=== PATIENT | female | born 1995 | race Caucasian/White ===

== ENCOUNTER 2022-05-26 15:12 | Outpatient (CLI) | payer OTHER, SELFPAY ==
--- OUTSIDE RECORDS SUMMARY | 2022-05-26 15:15 | XMS_ITS | Encounter Summary ---
:1995 Author Organization [employer] Address [address] [place] [address] Care Team Providers Name Role Phone Oksana Haque MD Primary Care Provider Encounter Details Date Type Department Care Team Description 06/30/2021 Office Visit [facility], Abdominal cramping (Primary Dx); Obstetrics and MD Pelvic pressure in female; Gynecology Physician s [address] [facility] Abnormal uterine bleeding (AUB); [address] [facility]. [place], [place] IUD (intrauterine device) in place [place], [place] [phone] (Wo rk) Social History Tobacco Use Types Packs/Day Years Used Date Smoking Tobacco: Every Day Cigarettes 0.3 Smokeless Tobacco: Never Comments: 5 per day Alcohol Use Standard Drinks/Week Comments Yes 0 (1 standard drink = 0.6 oz pure alcoho l) social Sex Assigned at Date Recorded Not on file documented as of this encounter Last Filed Vital Signs Vital Sign Reading Time Taken Comments Blood Pressure 120/87 06/30/2021 2:05 PM RESEARCH CHIEF ENGINEER Pulse 94 06/30/2021 2:05 PM RESEARCH CHIEF ENGINEER Temperature - - Respiratory Rate - - Oxygen Saturation - - Inhaled Oxygen Concentration - - Weight 77 kg (169 lb 12.8 oz) 06/30/2021 2:00 PM RESEARCH CHIEF ENGINEER Height - - Body Mass Index 25.63 04/16/2021 2:09 PM CDT documented in this encounter Patient Instructions Patient InstructionsTabitha Ponce MD - 06/30/2021 2:00 PM CST 1) For the moderate to severe pain, take the ketorolac/toradol every 6 hours. Do not take with ibuprofen. You can take with tylenol 1000mg every 6 hours. Use heat pad. 2) Schedule an IUD removal and insertion in clinic - Will plan to place Kyleena/Nereida. 3) If any concerns before then, let us know. ARCH CHIEF ENGINEER documented in this encounter Progress Notes Tabitha Ponce MD - 06/30/2021 2:00 PM CST CC: IUD check S: Ms. Jennifer King is a 26 y.o. s/p Mirena IUD insertion on 05/14. Since then she had some initial spotting followed by heavier menses for 2 weeks in May. Has had some lower abdominal cramping primarily on the right lower pelvis. The cramping has reduced in frequency and now occurs a couple times a week. Over when the sharp pain is happen she may have to miss work given the severity of the pain. Ibuprofen Tylenol not helping to significant degree. Reports that her cramps are also more painful with her menses. Pain is mostly in the right inguinal ligament/lower pelvis region. Did have LMP 8 days ago. Also reports of pelvic pressure feeling like her bladder is very full but does not have to urinate. Minimal amount of urination this sensation. Having some pain with sex. Has been having ongoing pelvic pain since age 19 years. Has been getting worse over the past few years. Was told previously she may have endometriosis but has had any her surgery at this time. Had 5cm hemorrhagic cyst on prior US. US today with resolution of cyst. O: Vitals: 06/30/21 1405 BP: 120/87 Pulse: 94 General- NAD Abdomen: no abdominal tenderness, soft, gravid, nontender in all quadrants, she reports pain is located in lower right inguinal mid region when pain does occur, no evidence of inguinal hernia, no pain with palpation or straight-leg raise, valsalva Pelvic- Speculum inserted and vagina pink and well rugated, cervix visualized and no obvious lesions. Mirena IUD strings visualized sweeping to the posterior fornix. Bimanual performed with no uterine tenderness. Uterus mobile and normal size,. No palpable adnexal masses or tenderness. Some overall discomfort with both speculum and bimanual exam A/P: Jennifer is a 26yo here for Mirena IUD surveillance and re-evaluation of 5cm hemorrhagic cyst on UStoday with resolution of cyst. Has had ongoing pelvic pain that has been worsening over the past years. We reviewed options for pelvic pain, including OCPs continuous and pre-menstrual NSAIDS. Discussed that the abnormal bleeding should improve over time with progesterone IUD, likely pain will improveas well and has been improving some. Could consider kyleena or nereida for smaller IUD to reduce pain with IUD, she may consider switching to a smaller IUD. Reviewed pain med options. Also discussed if pain is persistent and no improvement with medication, could consider diagnostic laparoscopy for evaluation in the future. - tylenol, ibuprofen PRN For pain, given prescription for toradol to use instead of ibuprofen for more severe pain - RTC PRN if desires to try kyleena/nereida to see if improvement in pain 35min was spent in review of chart, lab results, history and examination as well as coordination andplan of care. Tabitha Ponce MD 06/30/2021 1:19 PM ARCH CHIEF ENGINEER documented in this encounter Plan of Treatment Not on filedocumented as of this encounter Visit Diagnoses Diagnosis Abdominal cramping - Primary Abdominal pain, unspecified site Pelvic pressure in female Other specified symptom associated with female genital organs Abnormal uterine bleeding (AUB) IUD (intrauterine device) in place Presence of intrauterine contraceptive d evice documented in this encounter Care Teams Pressurised Container Filler Relationship Specialty Start Date End Date Oksana Haque MD PCP - General Family Practice 02/07/21 [address] [place] [address] documented as of this encounter
--- OUTSIDE RECORDS SUMMARY | 2022-05-26 15:15 | XMS_ITS | Encounter Summary ---
:1995 Author Organization [facility] Address [address] [place] [address] Care Team Providers Name Role Phone No Primary/Referring, Phy Primary Care Provider Unavailable Encounter Details Date Type Department Care Team Description 01/31/2018 Notes/Orders [facility] Mari Milner A Encounter for IUD [address] insertion [place], [place] [address] Social History Tobacco Use Types Packs/Day Years Used Date Smoking Tobacco: Every Day Smokeless Tobacco: Never Comments: 3-4 cigs per day Alcohol Use Standard Drinks/Week Comments Yes 0 (1 standard drink = 0.6 oz pure alcoho l) rare use - once a month Sex Assigned at Date Recorded Not on file documented as of this encounter Plan of Treatment Not on filedocumented as of this encounter Procedures Procedure Name Priority Date/Time Associated Diagnosis Comme nts TEST Waiting 01/31/2018 3:57 PM Encounter for IUD Re sults for this (URINE) CDT insertion procedure are i n the results section. documented in this encounter Results Test (Urine) (01/31/2018 3:57 PM CDT) Patholo gist Method Time Signature HCG, Urine Negative [facility] Negative = <20 mIU/ml LABORATO MIKKI If is suspected, suggest repeat in 48-72 hours or confirm results with a quantitative hCG test. Specimen Anatomical Collection Method Collection Time Receive d Time (Source) Location / / Volume Laterality Urine specimen 01/31/2018 3:57 PM 018 3:59 (specimen) CDT PM CDT Narrative [facility] - 01/31/2018 4:07 PM C DT Performed at [facility], [address], [place] [address] Kandi Giordano MD LAB_1 Performing Organization Address City/State/ZIP Code Phon e Number [facility] [phone] documented in this encounter Visit Diagnoses Diagnosis Encounter for IUD insertion Encounter for insertion of intrauterine contraceptive device documented in this encounter Care Teams Shrink Pit Supervisor Relationship Specialty Start Date End Date No Primary/Referring, Phy PCP - General 10/23/17 documented as of this encounter
--- OUTSIDE RECORDS SUMMARY | 2022-05-26 15:15 | XMS_ITS | Encounter Summary ---
:1995 Author Organization [facility] Address [address] [place] [address] Care Team Providers Name Role Phone Oksana Haque MD Primary Care Provider Reason for Visit Reason Comments MEDICATION CHECK prozac and adderall rx check . Pt states she is still having anxiety and having problems sleeping Encounter Details Date Type Department Care Team Description 02/24/2021 Phone Visit [facility] Oksana Haque MD Depression with Practice [address] anxiety (Primary Dx) [address] [place], [place] [phone] (Wo rk) Social History Tobacco Use Types Packs/Day Years Used Date Smoking Tobacco: Every Day Cigarettes 0.3 Smokeless Tobacco: Never Alcohol Use Standard Drinks/Week Comments Yes 0 (1 standard drink = 0.6 oz pure alcoho l) social Sex Assigned at Date Recorded Not on file documented as of this encounter Progress Notes Oksana Haque MD - 02/24/2021 3:40 PM CDT Historical: Chief Complaint Patient presents with ??? MEDICATION CHECK prozac and adderall rx check. Pt states she is still having anxiety and having problems sleeping Medication Check: Which medication(s) are you here to have reviewed/refilled? Prozac and Adderall Do you have difficulty taking medications as prescribed? No Do you have medication side effect concerns? No Prozac might not be helping, still feeling depressed, sad, anxious, no suicidal thoughts, hydroxyzine not helping for sleep. I have personally reviewed the patient's allergies, medications and past medical history in detail and updated the patient record as necessary. Observed: LMP 02/19/2021 Physical Exam: General Appearance: alert, well appearing and in no apparent distress Heart: regular rate and rhythm and no murmurs, gallops or rubs Lungs: clear to ausculation and no wheezes, rales or rhonchi Assessment/Plan: Depression with anxiety - traZODone (DESYREL) 50 MG tablet; Take 1-2 Tablets by mouth daily at bedtime for 60 days. - FLUoxetine (PROZAC) 10 MG capsule; Take 3 Capsules by mouth daily for 60 days. In 1 week increase to 20 mg daily Increase the dose of Prozac to 30 mg daily Trazodone as directed Phone number was provided to schedule for behavior health FMLA 1-2 days a month dated back from November 14, 2020 was done for 3 months Follow-up in 3 weeks for med check Should get medical attention right away if there is any worsening of symptoms or new symptoms Please see orders and patient instructions Oksana Haque MD documented in this encounter Plan of Treatment Not on filedocumented as of this encounter Visit Diagnoses Diagnosis Depression with anxiety (HRC) - Primary Dysthymic disorder documented in this encounter Care Teams Precision Assembler Bench Relationship Specialty Start Date End Date Oksana Haque MD PCP - General Family Practice 02/07/21 [address] [place] [address] documented as of this encounter
--- OUTSIDE RECORDS SUMMARY | 2022-05-26 15:15 | XMS_ITS | Encounter Summary ---
:1995 Author Organization [facility] [employer] [facility] Address [address] [place] [address] Care Team Providers Name Role Phone No Primary/Referring, Phy Primary Care Provider Unavailable Encounter Details Date Type Department Care Team Description 10/19/2019 nicola Weber [phone] Social History Tobacco Use Types Packs/Day Years Used Date Smoking Tobacco: Every Day Smokeless Tobacco: Never Comments: 3-4 cigs per day Alcohol Use Standard Drinks/Week Comments Yes 0 (1 standard drink = 0.6 oz pure alcoho l) rare use - once a month Sex Assigned at Date Recorded Not on file documented as of this encounter Progress Notes FAMILY MEDICINENICOLA PROVIDER - 10/19/2019 12:00 AM CDT nicola Treatment Plan Diagnosis Recurrent Urinary Tract Infection Visit Date October 19, 2019 Jennifer King Date of : 89 Provider Cheryl Chaves, Nurse Practitioner Note From Provider Saurav Rodriguez, I have sent your prescription to your pharmacy as we discussed. Please follow-up in your clinic regarding your frequent infections and for treatment of any future infections in the next 6 months. Take good care,Cheryl BELCHER Treatment Plan Since you have a bacterial infection, let's try an antibiotic. I sent a prescription to [facility] Kateryna Crevantes. I've also listed a few of the best ways to soothe your discomfort and some additional self-care tips to get you on the road to feeling better. If your symptoms don't improve after 3days, or if you have questions, select Help to Request a Call Back and we???ll talk about your next steps for free.Because you have recurrent UTIs, we recommend your next occurrence be seen in clinic. If your provider doesn???t recommend a long-term plan, we???d be happy to treat your next four UTIs at [facility]! Order(s) Macrobid 100 mg capsule Take 1 capsule oral every twelve hours with meals for 5 days Note: Take on a full stomach. Refills: None Sent To: [facility] Kateryna Cervantes [address] [place] [address] Treatment Plan Self Care Tip Topics What to Do For Your Next UTI Warm Packs Drink Water Avoid Caffeine Importance of Prevention Yeast Infection Next Steps What to Expect If you follow the recommendations I made on the Treatment tab, your symptoms should improve in about3 days. If your symptoms don't improve after 3 days, or if you have questions, select Help to Request a Call Back and we'll help determine your next steps for free.Because you have recurrent urinary tract infections, we recommend your next UTI be treated in clinic. The standard of care is to get a culture to identify if a intermediate card tender prevention approach is best for you and that nothing else is contributing to your symptoms. You can even share your recent [facility] visit with your in-clinic provider byclicking Share My Records in your treatment plan. If your provider indicates a intermediate card tender prevention plan isn???t necessary, we???d be happy to treat your following four bladder infections at [facility]! What to Watch Out For Give us a call if you experience: ??? High fever ??? Shaking chills ??? Worsening pain with urination ??? Severe pain in your back, abdomen or pelvis My Conditions, Orders, Allergies as of October 19, 2019 Standard condition list endometriosis Current orders Macrobid (nitrofurantoin monohyd/m-cryst) Allergies Sulfa (Sulfonamide Antibiotics) [facility] Information [facility] by Meludia We are an online clinic open 04/01. If you have any questions or comments about this visit, please call or email [email or web address] documented in this encounter Plan of Treatment Not on filedocumented as of this encounter Visit Diagnoses Not on filedocumented in this encounter Care Teams Shoe Worker Relationship Specialty Start Date End Date No Primary/Referring, Phy PCP - General 10/23/17 documented as of this encounter
--- OUTSIDE RECORDS SUMMARY | 2022-05-26 15:15 | XMS_ITS | Encounter Summary ---
:1995 Author Organization [facility] Address [address] [address] Care Team Providers Name Role Phone No Primary/Referring, Phy Primary Care Provider Unavailable Reason for Visit Reason Comments Bleeding Encounter Details Date Type Department Care Team Description 12/24/2020 Office Visit [facility] Kassi Kurtz mal uterine bleeding (AUB) (Primary Dx); and Gynecology MD Johanna Pap smear for cervical cancer screening Physicians [address] [place] [address] [place] [phone] Social History Tobacco Use Types Packs/Day Years Used Date Smoking Tobacco: Every Day Smokeless Tobacco: Never Alcohol Use Standard Drinks/Week Comments Yes 0 (1 standard drink = 0.6 oz pure alcoho l) social Sex Assigned at Date Recorded Not on file documented as of this encounter Last Filed Vital Signs Vital Sign Reading Time Taken Comments Blood Pressure 138/82 12/24/2020 1:42 PM CDT Pulse 87 12/24/2020 1:42 PM CDT Temperature - - Respiratory Rate - - Oxygen Saturation - - Inhaled Oxygen Concentration - - Weight 73 kg (161 lb) 12/24/2020 1:42 PM CDT Height 173.4 cm (5' 8.25) 12/24/2020 1:42 PM CDT Body Mass Index 24.3 12/24/2020 1:42 PM CDT documented in this encounter Patient Instructions Patient InstructionsKassi Kurtz MD - 12/24/2020 1:20 PM CDT 1. loading supervisor your prescription and take as directed. 2. You will be informed of the results of your pap smear and further management. Abnormal Uterine Bleeding: Care Instructions Your Care Instructions Abnormal uterine bleeding is irregular bleeding from the uterus that is longer or heavier than usualor does not occur at your regular time. Sometimes it is caused by changes in hormone levels. It can also be caused by growths in the uterus, such as fibroids or polyps. Sometimes a cause cannot be found. You may have heavy bleeding when you are not expecting your period. Your doctor may suggest a test, if you think you are . Follow-up care is a han part of your treatment and safety. Be sure to make and go to all appointments, and call your doctor if you are having problems. It's also a good idea to know your test results and keep a list of the medicines you take. How can you care for yourself at home? ?? Be safe with medicines. Take pain medicines exactly as directed. ? If the doctor gave you a prescription medicine for pain, take it as prescribed. ? If you are not taking a prescription pain medicine, ask your doctor if you can take an lxpc-zpl-afqlbrs medicine. ?? You may be low in iron because of blood loss. Eat a balanced diet that is high in iron and vitamin C. Foods rich in iron include red meat, shellfish, eggs, beans, and leafy green vegetables. Talk toyour doctor about whether you need to take iron pills or a multivitamin. When should you call for help? Call 911 anytime you think you may need emergency care. For example, call if: ? You passed out (lost consciousness). Call your doctor now or seek immediate medical care if: ? You have new or worse belly or pelvic pain. ? You have severe vaginal bleeding. ? You feel dizzy or lightheaded, or you feel like you may faint. Watch closely for changes in your health, and be sure to contact your doctor if: ? You think you may be . ? Your bleeding gets worse. ? You do not get better as expected. Where can you learn more? 1. Go to https://www.[employer]/healthlibrary. 2. Enter I327 in the search box. Current as of: December 29, 2019?Content Version: 12.8 ?? 4230-5835 [employer]. Care instructions adapted under license by your healthcare professional. If you have questions abouta medical condition or this instruction, always ask your healthcare professional. [employer] disclaims any warranty or liability for your use of this information. documented in this encounter Progress Notes Kassi Kurtz MD - 12/24/2020 1:20 PM CDT PORTER HEAD VISIT CC: Abnormal uterine bleeding Jessi King is a pleasant 25-year-old female G0 who presents with concerns regarding irregular menstrual bleeding. Menstrual history is as follows: Menarche age 15. Cycles were regular at the beginning but then became irregular around age 16-17. Bleeding became heavy. The past 3 years she has been experiencing consistent bleeding every other week to every 2 weeks that is heavy. She was seen in the emergency department in February of 2020. She is experiencing pelvic pain and had a pelvic ultrasound done that demonstrated multiple cysts on both ovaries with a suggested diagnosis of PCOS. Patient was seen by specialist at [facility] as in able to continue seeing a provider due to insurance issues. That provider hadrecommended she stop taking control pills to see how her cycles regulated. The past 3 months cuate cope reports that her menstrual bleeding has been heavy and daily. She did have a Mirena IUD in place 1-1/2 years ago but that was removed due to consistent spotting. She is currently on mini pill. Patient reports that she was prescribed the mini pill through a company online. She denies any history of migraines with aura as or blood clotting disorders. PORTER HEAD history: no h/o abnormal pap smears or STIs. [facility] Sexually active. Minipill for contraception. Medical history notable for depression. Patient reports she used to be on Lexapro but is no longer on medication. Surgical history negative. Medications and drug allergies reviewed. Family history unremarkable. O. Vitals: 07/13/21 1342 BP: 138/82 Pulse: 87 Gen: NAD Pelvic: Examination of external genitalia within normal limits. On speculum exam, cervix and vaginalmucosa within normal limits. Pap smear collected. Speculum removed. Bimanual examination unremarkable. A/P. ICD-10-CM 1. Abnormal uterine bleeding (AUB) N93.9 2. Pap smear for cervical cancer screening Z12.4 Scr Pap Smer; Obtain Prep&Convy-Lab PAP Test Discussed potential etiologies and management of abnormal uterine bleeding. I would recommend patient switch from a progesterone only OCP to a combined OCP. This may be better in regulating her cycles.Prescription for OCP sent to preferred pharmacy. To be informed of results of Pap smear and further m anagement. Questions and concerns addressed. Follow up in 3 months for re-evaluation. Kassi Kurtz MD 12/24/2020, 8:11 PM documented in this encounter Plan of Treatment Not on filedocumented as of this encounter Procedures Procedure Name Priority Date/Time Associated Diagnosis Comme nts PAP TEST Routine 12/24/2020 2:44 PM Pap smear for Results for this CDT cervical cancer procedure ar e in the screening results section . documented in this encounter Results PAP Test (12/24/2020 2:44 PM CDT) Component Value Ref Test Analysis Performed Pathologis t Range Method Time At Signature Case Report Pap ? Case: [id number] ? 01/01/2021 [facility] Authorizing Provider: ??Kassi Kurtz MD ??Collected: ? 12/24/2020 1444 ? 7:25 AM HOSPITA L Ordering Location: ? [facility] Obstetrics and Received: ?12/24/2020 1450 ? CDT ? Gynecology Physicians ? First Screen: ? Chucky Casillas, CT ? (ASCP) ? Specimen: ?Pap Test, Rou bipin, Cervix/Endocervix ? Pap Specimen Satisfactory for 01/01/2021 [facility] Adequacy evaluation, 7:25 AM HOSPITAL endocervical/rivera CDT sformation zone component present. Pap Negative for 01/01/2021 [facility] Electr onically Interpretation intraepithelial 7:25 AM HOSPITAL signed by lesion or CDT Dorota Casillas tthew malignancy A, CT ( CP) on (NIL). 01/01/2021 at 7:25 AM Pap Disclaimer The Pap test is a 01/01/2021 [facility] screening test 7:25 AM HOSPITAL designed to aid CDT in the detection of cervical cancer and its precursor lesions. It is not a diagnostic procedure and should not be used as the sole means of detecting cervical cancer. Both false-positive and false-negative results may occur. Gross The specimen is 01/01/2021 [facility] Description received in 7:25 AM HOSPITAL SurePath fixative CDT and properly labeled. 1 Pap-stained SurePath slide is prepared. Embedded Images 01/01/2021 [facility] 7:25 AM HOSPITAL CDT Specimen Anatomical Collection Method Collection Time Receive d Time (Source) Location / / Volume Laterality Other Specimen ENTIRE ENDOCERVIX 12/24/2020 2:44 PM 2:50 Type / Unknown CDT PM CDT Comment: LMP: No LMP recorded. Narrative This result has an attachment that is no t available. Kassi Kurtz MD LAB PATHOLOGY Performing Organization Address City/State/ZIP Code Phon e Number [address] [address] documented in this encounter Visit Diagnoses Diagnosis Abnormal uterine bleeding (AUB) - Primar y Pap smear for cervical cancer screening Screening for malignant neoplasm of the cervix documented in this encounter Care Teams Airveyor Operator Relationship Specialty Start Date End Date No Primary/Referring, Phy PCP - General 10/23/17 documented as of this encounter
--- OUTSIDE RECORDS SUMMARY | 2022-05-26 15:15 | XMS_ITS | Encounter Summary ---
:1995 Author Organization [employer] Address [address] [place] [address] Care Team Providers Name Role Phone Oksana Haque MD Primary Care Provider Encounter Details Date Type Department Care Team Description 04/16/2021 Office Visit [place] Tabitha Ponce, Abnormal u terine bleeding (Primary Dx); Obstetrics and MD Routine screening for STI (sexually rivera smitted infection) Gynecology Physician s [address] [facility] [address] [facility]. [place], [place] [phone] (Wo rk) Social History Tobacco Use Types Packs/Day Years Used Date Smoking Tobacco: Every Day Cigarettes 0.3 Smokeless Tobacco: Never Comments: 4-5 per day Alcohol Use Standard Drinks/Week Comments Yes 0 (1 standard drink = 0.6 oz pure alcoho l) social Sex Assigned at Date Recorded Not on file documented as of this encounter Last Filed Vital Signs Vital Sign Reading Time Taken Comments Blood Pressure 123/80 04/16/2021 2:09 PM CDT Pulse 80 04/16/2021 2:09 PM CDT Temperature - - Respiratory Rate - - Oxygen Saturation - - Inhaled Oxygen Concentration - - Weight 74.8 kg (165 lb) 04/16/2021 2:09 PM CDT Height 173.4 cm (5' 8.25) 04/16/2021 2:09 PM CDT Body Mass Index 24.9 04/16/2021 2:09 PM CDT documented in this encounter Patient Instructions Patient InstructionsStTabitha noonan R, MD - 04/16/2021 1:40 PM CDT 1) Go to lab to have the blood tested for hormone testing. 2) Schedule a pelvic ultrasound. 3) Schedule an IUD insertion - place [address] in the upper vagina - the night before the procedure - take 800mg of ibuprofen 1 hour prior to the appointment - take 1mg of ativan when you arrive for the appointment - you will need someone to drive 4) When you are due for the next period, take 600mg ibuprofen 3 times a day starting 3 day before your period and continuing 2 days of the period ES 1 THRU 6 VISITING TEACHER documented in this encounter Progress Notes Tabitha Ponce MD - 04/16/2021 1:40 PM CDT Chief Complaint: Heavy menses, period pain, pain with intercourse HPI: Ms. Jennifer King is a 25 y.o. P0 who presents today for the above noted concern. She was seen by PEDIATRIC ALLERGIST on 12/24/20 for AUB. She was recommended to switch from POP to OCP. Recommended f/u in 3months. On OPCs now - sometimes bleeds for a week, sometimes the week off it. Bleeds around 10d on average each month. Takes at same time every day. Menarche - 15yrs Irregular periods starting age [age]yrs. 6 months off, then every two weeks. About half were normal periods. Some months were once a month, then every two weeks - couple days. Every 2-3hrs tampons. On tool rental technician days, 2-3 tampons/day. First 2-3-d and then 7-8d cycles otherwise. Used mirena IUD in place 1 06/15 and removed due to constant spotting. Was on mini-pill. Has been on OCPs prior. Had US prior and was told that she has PCO. Had seen a specialist at [place] and was recommended to stop OPCs to see how periods regulate. Sharp jab pain on the right side, worse during heavy days only. Needs to lie down. Back pain. Wakes up in the morning and feels better to sit on the toilet. Nausea. Heating pad. When the sharp pain comes, they last briefly. Takes celesse - homeopathic med. Takes ibuprofen and relieves a little. Tries to exercise to help relieve. Feels that she might have a bump on vaginal wall, near opening. Nonpainful. Past BULKER Hx: -P0 - no history of abnl paps - last 2020 NILM - no hx of STDs Medical/Surgical Hx: As above Meds and allergies reviewed Exam: BP 123/80 (BP Location: Right Arm, BP Cuff Size: Large) Pulse 80 Ht 5' 8.25 (1.734 m) Wt 165 lb (74.8 kg) BMI 24.90 kg/m?? Estimated body mass index is 24.9 kg/m?? as calculated from the following: Height as of this encounter: 5' 8.25 (1.734 m). Weight as of this encounter: 165 lb (74.8 kg). Gen: NAD Skin: No obvious hormonal acne or hirsutism Pelvic: External genitalia including labia majora and minora, Bartholin's, [place]'s glands, and robert-anal region are normal. No urethral lesions or tenderness. Bladder is nontender and well-supported. On spec exam vaginal mucosa is moist and well-rugated without lesion. Cervix is appropriate for parityand without lesion. On bimanual exam, uterus is anteverted and nontender. There are no adnexal masses or tenderness appreciated. Prior imaging 12/2019 [facility]: FINDINGS: Uterus:: 3.7 cmx4.5 cmx6.5 cm ??retroflexed. Myometrium: Normal. Endometrium: Normal. Thickness: 8 mm Right ovary: There are 25 or more follicles in the 2-9 mm range. Corpus luteum cyst ??Ovarian volume: 17 ml. Right ovary Doppler: Color and spectral Doppler imaging shows normal vascular flow. Left ovary: There are 25 or more follicles in the 2-9 mm range. ??Ovarian volume: 15 ml. Left ovary Doppler: Color and spectral Doppler imaging shows normal vascular flow. Intraperitoneal Fluid: Trace amount. Impression: Jennifer is a 25 y.o. P0 with AUB-possible ovulatory vs. Now endometrial on OCPs, interfering with quality of life. Reviewed with the patient the differential diagnosis of abnormal uterine bleeding including structural such as fibroids or polyps, and nonstructural including anovulation, adenomyosis, etc. The patient was told prior PCO on imaging -does not specify in the imaging from [facility] seen in [place]. She has not had any imaging in our system or hormone testing. --We reviewed management to include oral medication (NSAIDS, OCPs, progestins). We also discussed possible bleeding from thin endometrial lining if she has had intermenstrual spotting with some heavierbleeding on the oral control pills. She denies missing any pills skipping doses. She is currently on a lower dose OCP which is likely a good fit for her otherwise. She has been interested in using the IUD again as this did work to help with her pain however she had persistent spotting. We discussed add back estrogen while using the IUD to help improvement of the spotting. Reviewed IUD insertion. She would like some sedation medication and pain medication to help with the insertion. Also reviewe d use of NSAIDs prior to her next period to help reduce both pain and bleeding. To further evaluate her irregular menses plan for hormone an ultrasound imaging as below. Plan: ICD-10-CM 1. Abnormal uterine bleeding N93.9 OBGYN Pelvic/Regional Dedicated Truck Driver Ultrasound TSH DHEA Sulfate Prolactin Testosterone free and total, female or children 2. Routine screening for STI (sexually transmitted infection) Z11.3 Chlamydia & GC (14 Years andOlder) 42min was spent in review of chart, lab results, history and examination as well as coordination andplan of care. Tabitha Ponce MD MPH 04/16/2021 5:31 PM ES 1 THRU 6 VISITING TEACHER documented in this encounter Plan of Treatment Not on filedocumented as of this encounter Results Chlamydia & GC (14 Years and Older) (04/16/2021 3:14 PM CDT) [facility] Method Time Signature Chlamydia Not Not 04/17/2021 [facility] Trachomatis Detected Detected 4:38 AM CDT CENTRAL LAB STD N. gonorrhoeae Not Not 04/17/2021 [facility] STD Detected Detected 4:38 AM CDT CENTRAL LAB Specimen Anatomical Collection Method Collection Time Receive d Time (Source) Location / / Volume Laterality Swab STD SPECIMEN FROM Non-blood 04/16/2021 3:14 PM 04/16/20 4:00 VAGINA / Unknown Collection / CDT PM CDT Unknown Narrative [facility] - 04/17/2021 4:38 AM CDT Test performed by Radio Operator Ground Mediated Amplification (TMA). Tabitha Ponce MD LAB_1 Performing Organization Address City/State/ZIP Code Phon e Number [facility] [address] [phone] documented in this encounter Visit Diagnoses Diagnosis Abnormal uterine bleeding - Primary Unspecified disorder of menstruation and other abnormal bleeding from female genital tract Routine screening for STI (sexually rivera smitted infection) Screening examination for venereal disea se documented in this encounter Care Teams County Coroner Relationship Specialty Start Date End Date Oksana Haque MD PCP - General Family Practice 02/07/21 [address] [place] [address] documented as of this encounter
--- OUTSIDE RECORDS SUMMARY | 2022-05-26 15:15 | XMS_ITS | Encounter Summary ---
:1995 Author Organization [employer] Address [address], [place] [address] Care Team Providers Name Role Phone No Primary/Referring, Phy Primary Care Provider Unavailable Reason for Visit Reason Comments Revisit CT scan review Encounter Details Date Type Department Care Team Description 11/26/2017 Office Visit [facility] Sree Franco urinary [facility] Juan Lilly MD tract infection [address] (Primary Dx) [place] [address] [place], [place] [phone] [id number] Social History Tobacco Use Types Packs/Day Years Used Date Smoking Tobacco: Some Days Smokeless Tobacco: Never Alcohol Use Standard Drinks/Week Comments No 0 (1 standard drink = 0.6 oz pure alcoho l) Sex Assigned at Date Recorded Not on file documented as of this encounter Last Filed Vital Signs Vital Sign Reading Time Taken Comments Blood Pressure 110/60 11/26/2017 11:21 AM CDT Pulse 95 11/26/2017 11:21 AM CDT Temperature - - Respiratory Rate - - Oxygen Saturation - - Inhaled Oxygen Concentration - - Weight 64 kg (141 lb) 11/26/2017 11:21 AM CDT Height 172.7 cm (5' 8) 11/26/2017 11:21 AM CDT Body Mass Index 21.44 11/26/2017 11:21 AM CDT documented in this encounter Patient Instructions Patient InstructionsWandy Sethi, LIVIER - 11/26/2017 11:00 AM CDT Return in 6 months for recheck. Juan Franco MD 11/26/2017, 11:34 AM Your follow up appointment will be scheduled with one of the urology care team members. This may be one of our physician assistants or nurse practitioners. They are always in direct communication with your physician who remains responsible for your urologic care at [facility]. For Xray, CT test, and Ultrasound results, unless specifically noted, the results of these tests will be discussed at your next visit with your provider. Results will not be reviewed over the phone. If test results require immediate action we will contact you. For medication refills you may need to be seen once a year. For your specific follow up please discuss with your provider. Thank you for continuing to trust us with your care. We are your partner. Our Urology team is always striving to improve your experience with us. You may randomly be selectedto receive a survey via email, text or phone. The survey is 9 questions long and takes less than oneminutes to complete. We would greatly appreciate your feedback. Thank you! Get Cost of Care Estimates - [phone] The health insurance marketplace has changed dramatically in the last few years. Our cost of care service will provide estimates over the phone for treatments or procedures billed through [facility]. To receive a cost estimate, simply call [phone] during regular business hours. If you have insurance coverage, you will need to verify your policy of coverage with your health planby calling the number located on the back of your insurance card and talking to member services. documented in this encounter Progress Notes Juan Franco MD - 11/26/2017 11:00 AM CDT Urology Clinic Note Date of Visit: 11/26/2017 Subjective: is a 22 y.o. year old female who has a past medical history which is overall unremarkable. Patient states that she has had to go to urgent care six times and last 4-5 months for urinary tract infections. She is unaware of exacerbating factors but she does associate this with menstruation. Previously the patient is been given postcoital antibiotics. She has a history of nephrolithiasis. She does have a history of irregular menses. She returns after CT scan which shows no evidence of abnormality. Review of systems: No changes in ears nose throat, cognition or nervous system, skin, or endocrine systems. No Fevers chills nausea vomiting Past medical, surgical, social and allergy history reviewed and unchanged from previous. Examination: No apparent distress Breathing unlabored Abdomen soft and nontender Assessment and Plan: History of recurrent urinary tract infection, no evidence of abnormal anatomy or urothelial lesion which would be very unlikely given her young age. On demand antibiotics ordered. Follow up in six months for recheck, earlier if questions or concerns arise. Juan Franco MD documented in this encounter Plan of Treatment Not on filedocumented as of this encounter Visit Diagnoses Diagnosis Recurrent urinary tract infection - Prim gregoria Urinary tract infection, site not specif ied documented in this encounter Care Teams Paradichlorobenzene Machine Operator Relationship Specialty Start Date End Date No Primary/Referring, Phy PCP - General 10/23/17 documented as of this encounter
--- OUTSIDE RECORDS SUMMARY | 2022-05-26 15:15 | XMS_ITS | Encounter Summary ---
:1995 Author Organization [facility] Address [address] [place] [address] Care Team Providers Name Role Phone No Primary/Referring, Phy Primary Care Provider Unavailable Encounter Details Date Type Department Care Team Description 01/31/2018 Lab Visit [facility] ry Fatigue, unspecified type [address] [place], [place] [address] Social History Tobacco Use Types [...] Name Priority Date/Time Associated Diagnosis Comme nts VITAMIN D Routine 01/31/2018 4:23 PM Fatigue, unspecified R esults for this 25-HYDROXY, TOTAL CDT type procedure are in the results section. HEMOGLOBIN, BLOOD Routine 01/31/2018 4:23 PM Fatigue, unspecif ied Results for this CDT type procedure are i n the results section. FERRITIN Routine 01/31/2018 4:23 PM Fatigue, unspecified R esults for this CDT type procedure are i n the results section. documented in this encounter Results Vitamin D 25-Hydroxy, Total (01/31/2018 4:23 PM CDT) P athologist Signature Vitamin 36 30 - 80 [facility] D,25-OH, Tot ng/mL LAB[facility]ATORIES Comment: Deficiency: ??< 20 ng/mL Insufficiency: ??20-29 ng/mL Optimum Level: ??30-80 ng/mL Possible Toxicity: > 80 ng/mL Specimen Anatomical Collection Method Collection Time Receive d Time (Source) Location / / Volume Laterality 01/31/2018 4:23 PM 8 4:25 CDT PM CDT Narrative [facility] - 01/31/2018 7:03 PM C DT Performed at [address] ??[id number] Kandi Giordano MD LAB_1 Performing Organization Address City/[facility] Code Phon e Number [facility] [phone] Ferritin (01/31/2018 4:23 PM CDT) athologist Signature Ferritin 36 9 - 204 [facility] ng/ml Specimen Anatomical Collection Method Collection Time Receive d Time (Source) Location / / Volume Laterality 01/31/2018 4:23 PM 8 4:25 CDT PM CDT Narrative [facility] - 01/31/2018 6:56 PM C DT Performed at [facility], [address] [place] [id number] Kandi Giordano MD LAB_1 Performing Organization Address [facility] Code Phon e Number [facility] [phone] Hemoglobin, Blood (01/31/2018 4:23 PM CDT) athologist Signature Hemoglobin 13.5 12.0 - 16.0 [facility] g/dl Specimen Anatomical Collection Method Collection Time Receive d Time (Source) Location / / Volume Laterality 01/31/2018 4:23 PM 8 4:25 CDT PM CDT Narrative [facility] - 01/31/2018 6:36 PM C DT Performed at [address] ??[id number] Kandi Giordano MD LAB_1 Performing Organization Address [facility]/ZIP Code Phon e Number [facility] [phone] documented in this encounter Visit Diagnoses Diagnosis Fatigue, unspecified type documented in this encounter Care Teams Western Philosophy Professor Relationship Specialty Start Date End Date No Primary/Referring, Phy PCP - General 10/23/17 documented as of this encounter
--- OUTSIDE RECORDS SUMMARY | 2022-05-26 15:15 | XMS_ITS | Encounter Summary ---
:1995 Author Organization [employer] Address [address] [place] [address] Care Team Providers Name Role Phone Oksana Haque MD Primary Care Provider Reason for Visit Reason Comments Forms Encounter Details Date Type Department Care Team Description 02/25/2021 Telephone [facility] Oksana Downey MD Forms [address] [place], [place] [address] [place] [address] [phone] (Wo rk) Social History Tobacco Use Types Packs/Day Years Used Date Smoking Tobacco: Every Day Cigarettes 0.3 Smokeless Tobacco: Never Alcohol Use Standard Drinks/Week Comments Yes 0 (1 standard drink = 0.6 oz pure alcoho l) social Sex Assigned at Date Recorded Not on file documented as of this encounter Nursing Notes Rosalinda Page - 02/28/2021 10:47 AM CDT Left message to call back to inform her that forms have been faxed to [place]. 2nd attempt CA closing encounter. Rosalinda Page - 02/27/2021 12:48 PM CDT Left a message to call back. Completed form has been faxed to [place] per her request. 1st attempt CA will attempt to call again. Rosalinda Page 02/27/2021, 12:49 PM Pati Barker LPN - 02/27/2021 10:20 AM CDT Rosalinda- will you please contact pt to find out what she needs re: forms etc. Pati Serna LPN 02/27/2021, 10:21 AM Libia Hamilton - 02/25/2021 6:28 PM CDT Miscellaneous Questions [Appt Center: If this call is after 3 p.m., communicate to patient: If we are not able to get back to you by the end of the day and your symptoms worsen please contact the Careline at [phone] OR at .] Is this a question/concern or an FYI? Question/Concern What is your question or concern? Is unable to finish the VIRI so her [place] paperwork can be faxed She is working tomorrow and is unableto pick the paperwork up. Would like to know how to proceed Have you recently been seen for this? Yes Is it okay to leave a detailed message on your voicemail? YEs Libia Hamilton documented in this encounter Plan of Treatment Not on filedocumented as of this encounter Visit Diagnoses Not on filedocumented in this encounter Care Teams Manager Ed Relationship Specialty Start Date End Date Oksana Haque MD PCP - General Family Practice 02/07/21 [address] [place], [place] [phone] documented as of this encounter
--- OUTSIDE RECORDS SUMMARY | 2022-05-26 15:15 | XMS_ITS | Encounter Summary ---
:1995 Author Organization [employer] Address [address] [place] [address] Care Team Providers Name Role Phone No Primary/Referring, Phy Primary Care Provider Unavailable Reason for Visit Reason Comments Medication Questions Encounter Details Date Type Department Care Team Description 12/24/2020 Telephone [facility] Oksana Haque MD Medication Questions Practice [address] [place], [place] [phone] (Wo rk) Social History Tobacco Use Types Packs/Day Years Used Date Smoking Tobacco: Every Day Smokeless Tobacco: Never Alcohol Use Standard Drinks/Week Comments Yes 0 (1 standard drink = 0.6 oz pure alcoho l) social Sex Assigned at Date Recorded Not on file documented as of this encounter Nursing Notes Pati Barker LPN - 12/24/2020 4:[address] Haque, directions should be to take one cap daily for one week , then increase to 2 caps daily. Called correct directions into pharmacy. Pati Barker LPN 12/24/2020, 4:13 PM IhlAlfreda - 12/24/2020 4:00 PM CDT Medications - Med Change / Question What is the name of the medication? FLUoxetine (PROZAC) 10 MG capsule What is your question or concern? Pharmacy needs clarification on directions for Take 1 Capsule by mouth daily for 60 days. In 1 weekincrease to 20 mg daily Is the patient there waiting? No Alfreda Amin [facility] Please route to: Care Team Pool documented in this encounter Plan of Treatment Not on filedocumented as of this encounter Visit Diagnoses Not on filedocumented in this encounter Care Teams Braille Transcriber Relationship Specialty Start Date End Date No Primary/Referring, Phy PCP - General 10/23/17 documented as of this encounter
--- OUTSIDE RECORDS SUMMARY | 2022-05-26 15:15 | XMS_ITS | Encounter Summary ---
:1995 Author Organization Formerly [facility] Address [address] [address] Care Team Providers Name Role Phone Oksana Haque MD Primary Care Provider Reason for Visit Procedure/Equipment (Routine) - Incomplete Specialty Diagnoses / Procedures Referred By Contact Refer red To Contact Diagnoses Left ovarian cyst IUD check up Tabitha Ponce MD Procedures OBGYN Pelvic/Hazardous Materials Driver Ultrasound OBGYN Pelvic/Hazardous Materials Driver Ultrasound [address] [place], [place] [address] Referral ID Status Reason Start Date Expiration Date Visits V isits Requested Authorized [id number] Incomplete 05/14/2021 08/13/2022 1 1 Encounter Details Date Type Department Care Team Description 06/30/2021 Office Visit [place] [facility] medicine specialist Tabitha Ponce, Left ovarian cyst; Ultrasound IUD check up [address] [place], [place] [address] [place], [place] [phone] (Wo rk) Social History Tobacco Use Types [...] encounter Procedures Procedure Name Priority Date/Time Associated Comments Diagnosis OBGYN PELVIC/ELECTRICAL HELPER Routine 06/30/2021 1:25 PM Left ovarian cyst Results for this ULTRASOUND GLOBAL CLIMATE CHANGE ANALYST IUD check up procedure are i n the results section. documented in this encounter Results OBGYN Pelvic/Hazardous Materials Driver Ultrasound (06/30/2021 1:25 PM GLOBAL CLIMATE CHANGE ANALYST) Analysis Performed At Patho logist Time Signature Uterus AP Diameter 3.70 cm EXTERNAL (Height) RESULTS Uterus 6.90 cm EXTERNAL Longitudinal RESULTS Diameter (Length) Uterus Transverse 4.90 cm EXTERNAL Diameter (Width) RESULTS Uterus Volume 65.50 ml EXTERNAL RESULTS Endometrium 6.40 mm EXTERNAL Thickness RESULTS Left Ovary 2.20 cm EXTERNAL Perpendicular RESULTS Diameter (Height) Left Ovary 3.90 cm EXTERNAL Longitudinal RESULTS Diameter (Length) Left Ovary 2.00 cm EXTERNAL Hilum-Cortex RESULTS Diameter (Width) Left Ovary Volume 8.98 ml EXTERNAL RESULTS Right Ovary 2.90 cm EXTERNAL Perpendicular RESULTS Diameter (Height) Right Ovary 5.50 cm EXTERNAL Longitudinal RESULTS Diameter (Length) Right Ovary 3.10 cm EXTERNAL Hilum-Cortex RESULTS Diameter (Width) Right Ovary Volume 25.89 ml EXTERNAL RESULTS Anatomical Region Laterality Modality Pelvis Ultrasound Specimen (Source) Anatomical Location Collection Method / Collectio n Time Received Time / Laterality Volume Narrative 06/30/2021 1:40 PM GLOBAL CLIMATE CHANGE ANALYST ELECTRICAL HELPER Ultrasound Exam performed on: ??06/30/2021 Referring provider: Tabitha Ponce MD Referring clinic: [facility] Clinical indications: Left ovarian cyst IUD check up LMP: ??Spotting on /off since IUD insert ion 05/14/2021 Lathe Puller(s) initials: DP The pelvic organs are imaged using: rivera svaginal. Today's ultrasound was compared to previ ous report and images from: US- 05/14/21 Measurements and comments Uterus: Longitudinal AP Transverse 6.90 3.70 4.90 cm Position: ??retroverted Comments: ??symmetrical Cervix and lower uterine segment are: No rmal Myometrium: homogeneous Saline infusion sonohysterogram: no Endometrium: 6.40 mm, smooth and regular IUD is seen in appropriate position in e ndometrial cavity Right ovary: ?? Longitudinal AP Transverse Volume 5.50 3.10 2.90 cm 25.89 ml Comments: 2.9 x 2.6 x 1.9 cm anechoic ar ea seen, normal appearing dominant follicle Left ovary: Longitudinal AP Transverse ?? 3.90 2.00 2.20 cm 8.98 ml Comments: appears normal Adnexa: ??no masses seen Peritoneal fluid: absent Other procedures done: none Impression: Normal uterus and endometrium. ??IUD see n in appropriate position. Right ovary with dominant follicle/simpl e cyst measuring 2.9 cm. ??Normal appearing left ovary, previous complex c yst has now resolved. Plan: These findings were reviewed with the patient. She will follow up with referring provider. Kandi Giordano MD Tabitha Ponce MD [facility] documented in this encounter Visit Diagnoses Diagnosis Left ovarian cyst Other and unspecified ovarian cyst IUD check up Surveillance of previously prescribed in trauterine contraceptive device documented in this encounter Care Teams Licensed Bondsman Relationship Specialty Start Date End Date Oksana Haque MD PCP - General Family Practice 02/07/21 [address] [place], [place] [id number] documented as of this encounter
--- OUTSIDE RECORDS SUMMARY | 2022-05-26 15:15 | XMS_ITS | Encounter Summary ---
:1995 Author Organization [facility] Address [address], [place] [address] Care Team Providers Name Role Phone No Primary/Referring, Phy Primary Care Provider Unavailable Reason for Visit Reason Comments VOMITING ABDOMINAL PAIN BODY ACHES Encounter Details Date Type Department Care Team Description 05/22/2018 Office Visit [facility] Marlyn Centeno, Non-intractable vomiting with nausea, unspecified vomiting type (Primary Dx); Josue CRUZ Mild dehydration [address] [address] [phone] (Wo rk) Social History Tobacco Use Types [...] Sign Reading Time Taken Comments Blood Pressure 104/72 05/22/2018 2:11 PM TRAINING DESIGNER Pulse 109 05/22/2018 2:11 PM TRAINING DESIGNER Temperature 36.9 ??C (98.4 ??F) 05/22/2018 2:11 PM TRAINING DESIGNER Respiratory Rate - - Oxygen Saturation 99% 05/22/2018 2:11 PM TRAINING DESIGNER Inhaled Oxygen Concentration - - Weight 62.6 kg (138 lb) 05/22/2018 2:11 PM TRAINING DESIGNER Height - - Body Mass Index 21.14 11/29/2017 4:11 PM CDT documented in this encounter Patient Instructions Patient InstructionsMarlyn Lucas MD - 05/22/2018 2:00 PM CST Vomiting STEP 1: Begin by offering 5cc (1 teaspoon) of an electrolyte solution (pedialyte, Gatorade, or otherrehydrating solution) or flat 7-up, melted popsicle, chicken broth... every 15 minutes for 1 hour. If Jennifer does not vomit during this hour then you may advance the liquids as follows: STEP 2: 1 teaspoon every 5 min for 1 hour, then STEP 3: 15 cc (1/2 ounce or 1 Tablespoon) every 15 minutes. Excellent intake!!! STEP 4: 1 ounce (2 Tablespoons) every 15-30 minutes for 1 hour, then STEP 5: 2 ounces every 30 minutes for 1-2 hours, then allow whatever your child wants to take of a clear liquid. DO NOT try food yet. That will come with time. Allow clear liquids for the first day, and resist theurge to let the child have milk (unless it's breast milk). Then, after the child is able to keep clear liquids down for 24 hours, you may slowly advance the diet. Start with soft foods such as noodles,chicken soup, rice, toast, applesauce???still avoiding the dairy products for another day if you can. Diarrhea may be a part of this process and can last up to 10 days with a viral illness. Call your doctor if vomiting persists despite the above treatment, if blood is present in the vomit or diarrhea, or if high fever (102.5 or higher) develops. *If vomiting begins again with a larger volume, rest 1 hour and back up one or two steps. NING DESIGNER documented in this encounter Progress Notes Marlyn Lucas MD - 05/22/2018 2:00 PM CST Historical: Chief Complaint Patient presents with ??? VOMITING ??? ABDOMINAL PAIN ??? BODY ACHES Nausea/Vomiting How long have you had these symptoms? 1.5 days Have you had any changes in symptoms since the onset? the same Are you experiencing any vomiting? YES How frequent has the vomiting occurred? 3 x in the past 6 hours usually after eating or drinking What does the vomit look like? Looks like what she has eaten or had to drink Have you had dry mouth? YES Have you had a fever? No Have you felt lightheaded or like you might faint? YES Are you urinating less than usual? YES Have you been able to eat? No Have you been able to keep fluids down? Yes Have you had abdominal pain/bloating? YES Have you had diarrhea? No Have you been having vertigo, a feeling like the room is spinning or moving? No Have you had a headache? YES Have you tried any treatments? No 23-year-old previously healthy, without any chronic conditions, female woke at 4 AM yesterday with severe stomach pain and vomiting. She had 1 episode of diarrhea yesterday. Abdominal pain feels like razor blades and is worse just before vomiting. It is primarily above the umbilicus. She has been trying to push saltines as recommended by her friends and vomits everything she eats. Her last vomiting episode was 3 hours ago and she has not wanted to eat or drink to avoid vomiting again. ROS) As above, she has a mild sore throat and nasal congestion, she has no history of strep throat. I have personally reviewed the patient's allergies, medications, past medical history, social history and rooming notes in detail and updated the patient record as necessary. Observed: BP 104/72 Pulse (!) 109 Temp 98.4 ??F (36.9 ??C) (Tympanic) Wt 138 lb (62.6 kg) SpO2 99% BMI 21.14 kg/m?? General Appearance: alert, well appearing and in no apparent distress HEENT: sclera clear and conjunctiva normal, oropharynx without erythema, mildly tacky, and no nasal drainage Neck: supple and bilateral mild anterior cervical adenopathy Heart: slightly tachycardic but regular rhythm and no murmurs, gallops or rubs Lungs: clear to ausculation and no wheezes, rales or rhonchi Abdomen: soft, nondistended, no palpable masses, no organomegaly and diffuse mild upper abdominal tenderness Assessment/Plan: 23-year-old female with a viral gastroenteritis. Zofran prescribed for PRN use. Advised to only take in fluids with some calories at this time and delay initiating eating for at least 12 hours. Advised to go to the emergency room if she has any sudden worsening of her pain or dehydration. Please see orders and patient instructions. Options for diagnosis and treatment were reviewed with patient, he/she was engaged in decision making, expressed understanding and agreed with the plan of care. Marlyn Lucas MD 05/22/2018, 2:35 PM Jennifer was seen today for vomiting, abdominal pain and body aches. Diagnoses and all orders for this visit: Non-intractable vomiting with nausea, unspecified vomiting type - ondansetron (ZOFRAN-ODT) 4 MG disintegrating tablet; Take 1 Tablet by mouth every 8 hours as needed for Nausea for up to 14 days. Mild dehydration NING DESIGNER documented in this encounter Nursing Notes Smiley See LPN - 05/22/2018 2:00 PM CST Smiley See LPN 05/22/2018, 1:59 PM NING DESIGNER documented in this encounter Plan of Treatment Not on filedocumented as of this encounter Visit Diagnoses Diagnosis Non-intractable vomiting with nausea, un specified vomiting type - Primary Mild dehydration Dehydration documented in this encounter Care Teams Hat Sprayer Relationship Specialty Start Date End Date No Primary/Referring, iRcoy PCP - General 10/23/17 documented as of this encounter
--- OUTSIDE RECORDS SUMMARY | 2022-05-26 15:15 | XMS_ITS | Encounter Summary ---
:1995 Author Organization [facility] Address [address] [place] [address] Care Team Providers Name Role Phone No Primary/Referring, Phy Primary Care Provider Unavailable Reason for Visit Procedure/Equipment (Routine) - Incomplete Specialty Diagnoses / Procedures Referred By Contact Refer red To Contact Diagnoses Recurrent UTI Painful menstrual periods Juan Franco MD Procedures CT IVP [address] [place] [address] Referral ID Status Reason Start Date Expiration Date Visits V isits Requested Authorized [id number] Incomplete 11/10/2017 02/09/2019 1 1 Encounter Details Date Type Department Care Team Description 11/19/2017 [facility] (Primary Dx[facility] Center MD Juan Lilly MD Recurrent UTI; [address] [place] [address] [place], [place] [phone] [address] Social History Tobacco Use Types Packs/Day Years [...] Name Priority Date/Time Associated Diagnosis Comme nts CREATININE/GFR, WB Routine 11/22/2017 11:31 AM Screening for R esults for this POC CDT nephropathy procedure are i n the results section. CT IVP W/WO IV CONT Routine 11/19/2017 4:36 PM Recurrent UTI Results for this CDT Painful menstrual procedure are in periods the results section. documented in this encounter Results Creatinine/GFR, WB POC (11/22/2017 11:31 AM CDT) P athologist Signature Creat Whole 0.7 0.52 - [facility] Blood 1.04 mg/dl [facility] GFR, Estimated >60 >60 [facility] ml/min/1.7 [facility]ATOR[facility] 3m2 GFR, Est., If >60 >60 [facility] Black ml/min/1.7 [facility]ATORIES 3m2 Specimen Anatomical Collection Method Collection Time Receive d Time (Source) Location / / Volume Laterality 11/22/2017 11:31 11/22/2017 3:23 AM CDT PM CDT Mariposa Aranda MD LAB_1 Performing Organization Address City/State/ZIP Code Phon e Number [facility] [phone] CT IVP (11/19/2017 4:36 PM CDT) Anatomical Region Laterality Modality Abdomen, Pelvis Computed Tomography Specimen (Source) Anatomical Collection Method Collection Time Re ceived Time Location / / Volume Laterality 11/19/2017 4:36 PM CDT Narrative 11/19/2017 6:02 PM CDT [facility] II CT ABDOMEN AND PELVIS WITHOUT AND WITH C ONTRAST (CT IVP) 11/19/2017 4:36 PM INDICATION: Recurrent urinary tract infe ction. Hematuria. TECHNIQUE: Helical thin-section CT scan of the abdomen and pelvis was performed before and after injection of IV contrast. Precontrast, 100 seconds postinjection, and 10-minute delayed images post 250 m L normal saline were performed as per CT IVP protocol. Postprocessing of data. From the helical source data, thin-section reconstruction performed in the axial plane with coronal AP reformats. Dose reduction techniques were used. IV CONTRAST: CT performed after intraven ous administration of 125 mL of Omnipaque 350. COMPARISON: None. FINDINGS: LUNG BASES: Unremarkable. CT IVP: No renal or ureteral stones. No renal mass lesions. Both kidneys excrete contrast into nondilated collecting systems. No filling defects in either collecting system or in the proximal ureters. P ortions of the distal ureters are not co mpletely opacified. Given the patient's age the scans were not repeated. Bladder is unremarkable. ABDOMEN: The liver, spleen, pancreas, ga llbladder and adrenal glands are unremarkable. No retroperitoneal adenopathy. Small bowel loops are unremarkable. PELVIS: Uterus is unremarkable. Tampon i n the vagina. No pelvic adenopathy. No free fluid. MUSCULOSKELETAL: Unremarkable. CONCLUSION: 1. ??No definite etiology for hematuria. Please note that portions of the distal ureters are not opacified on this study. Normal ureteral anatomy. Procedure Note Mariposa Aranda MD - 11/19/2017Formatti ng of this note might be different from the original. SPECIAL[facility] II CT ABDOMEN AND PELVIS WITHOUT AND WITH C ONTRAST (CT IVP) 11/19/2017 4:36 PM INDICATION: Recurrent urinary tract infe ction. Hematuria. TECHNIQUE: Helical thin-section CT scan of the abdomen and pelvis was performed before and after injection of IV contrast. Precontrast, 100 seconds postinjection, and 10-minute delayed images post 250 mL normal saline were performed as per CT IVP prot ocol. Postprocessing of data. From the helical source data, thin-section reconstruction performed in the axial plane with coronal AP reformats. Dose reduction techniques were used. IV CONTRAST: CT performed after intraven ous administration of 125 mL of Omnipaque 350. COMPARISON: None. FINDINGS: LUNG BASES: Unremarkable. CT IVP: No renal or ureteral stones. No renal mass lesions. Both kidneys excrete contrast into nondilated collecting systems. No filling defects in either collecting system or in the proximal ureters. Portions of the distal ureters are not completely opacif ied. Given the patient's age the scans were not repeated. Bladder is unremarkable. ABDOMEN: The liver, spleen, pancreas, ga llbladder and adrenal glands are unremarkable. No retroperitoneal adenopathy. Small bowel loops are unremarkable. PELVIS: Uterus is unremarkable. Tampon i n the vagina. No pelvic adenopathy. No free fluid. MUSCULOSKELETAL: Unremarkable. CONCLUSION: 1. No definite etiology for hematuria. P lease note that portions of the distal ureters are not opacified on this study. Normal ureteral anatomy. Juan Franco MD RAD CT documented in this encounter Visit Diagnoses Diagnosis Screening for nephropathy - Primary Recurrent UTI Urinary tract infection, site not specif ied Painful menstrual periods Dysmenorrhea documented in this encounter Administered Medications Inactive Administered Medications - up to 3 most recent administrations Medication Order MAR Action Action Date Dose Rate Site iohexol (OMNIPAQUE) 350 MG/ML Given 11/19/2017 4:06 PM CDT 125 m L injection 125 mL 125 mL, Intravenous, ONCE, On Wed11/19/17 at 1615, For 1 dose documented in this encounter Care Teams County Director Relationship Specialty Start Date End Date No Primary/Referring, Phy PCP - General 10/23/17 documented as of this encounter
--- OUTSIDE RECORDS SUMMARY | 2022-05-26 15:15 | XMS_ITS | Encounter Summary ---
:1995 Author Organization [facility] [employer] Address [address] [place] [address] Care Team Providers Name Role Phone Oksana Haque MD Primary Care Provider Reason for Visit Reason Comments Forms Encounter Details Date Type Department Care Team Description 02/19/2021 Telephone [facility] Oksana Haque MD Forms [address] [place], [place] [address] [place] [address] [phone] (Wo rk) Social History Tobacco Use Types Packs/Day Years Used Date Smoking Tobacco: Every Day Smokeless Tobacco: Never Alcohol Use Standard Drinks/Week Comments Yes 0 (1 standard drink = 0.6 oz pure alcoho l) social Sex Assigned at Date Recorded Not on file documented as of this encounter Nursing Notes Oksana Haque MD - 02/25/2021 6:48 PM CDT Done Rosalinda Page - 02/21/2021 2:00 PM CDT Spoke with patient and let her know the form has been placed on provider's basket to complete. Pt has a phone visit with provider on 02/24/21. Will fax form to her employer, advised will need an VIRI before we can fax it. Patient agreed. Rosalinda Page 02/21/2021, 2:01 PM Rosalinda Page - 02/21/2021 1:54 PM CDT Forms placed on provider's basket to complete Rosalinda Page 02/21/2021, 1:55 PM Antoinette Blanton - 02/19/2021 3:27 PM CDT Forms & Letters - All Types [Appt Center: Remind patient that forms may take up to 7-10 business days to complete.] IN PROCESS: Type of form: fmla Patient stated employer was asking about it has not received anything yet Patient dropped off form(s) to clinic on a couple weeks ago. Is it okay to leave a detailed message on your voicemail? Yes Is there anything else I can help you with today? Antoinette Blanton documented in this encounter Plan of Treatment Not on filedocumented as of this encounter Visit Diagnoses Not on filedocumented in this encounter Care Teams Hr Director Relationship Specialty Start Date End Date Oksana Haque MD PCP - General Family Practice 02/07/21 [address] [place] [address] documented as of this encounter
--- OUTSIDE RECORDS SUMMARY | 2022-05-26 15:15 | XMS_ITS | Encounter Summary ---
:1995 Author Organization [facility] Address [address] [place] [address] Care Team Providers Name Role Phone No Primary/Referring, Phy Primary Care Provider Unavailable Encounter Details Date Type Department Care Team Description 01/14/2021 nicola Weber [phone] Social History Tobacco Use Types Packs/Day Years Used Date Smoking Tobacco: Every Day Smokeless Tobacco: Never Alcohol Use Standard Drinks/Week Comments Yes 0 (1 standard drink = 0.6 oz pure alcoho l) social Sex Assigned at Date Recorded Not on file documented as of this encounter Progress Notes FAMILY MEDICINENICOLA PROVIDER - 01/14/2021 12:02 PM CDT nicola Treatment Plan Diagnosis Urinary Tract Infection Visit Date January 14, 2021 Jennifer King Date of : 89 Provider Wanda Hoffman, Nurse Practitioner Note From Provider Saurav Rodriguez! So sorry to hear you're having symptoms of a bladder infection. I've sent a prescription for an antibiotic to your pharmacy. The medication that I prescribed for you should be taken with a full meal twice a day.lso, remember to drink lots of fluids. We are here for you for any questions or concerns along the way, just Request a Call Back. Feel better soon! SIMI Muñoz Treatment Plan Since you have a bacterial infection, let's try an antibiotic. I sent a prescriptionto [facility]. I've also listed a few of the best ways to soothe your discomfortand some additional self-care tips to get you on the road to feeling better.If your symptoms don't improve after 3 days, or if you havequestions, please select Help to Request a Call Back andwe'll talk about your next steps for free. Order(s) Macrobid 100 mg capsule Take 1 capsule oral every twelve hours with meals for 5 days Note: Take on a full stomach. Refills: None Sent To: [facility] [address] [place] [id number] Treatment Plan Self Care Tip Topics Avoid Caffeine Warm Packs Drink Water What to Expect If you follow the recommendations I made on the Treatment tab, your symptomsshould improve in about 3 days. If your symptoms don'timprove after 3 days, or if you have questions, please select Help toRequest a Call Back and we'll helpdetermine your next step for free. What to Watch Out For Give us a call if you experience: ??? High fever ??? Shaking chills ??? Worsening pain with urination ??? Severe pain in your back, abdomen or pelvis My Conditions, Orders, Allergies as of January 14, 2021 Standard condition list Polycystic Ovarian Syndrome (PCOS) endometriosis Current orders Macrobid (nitrofurantoin monohyd/m-cryst) Prozac (fluoxetine) hydroxyzine HCl (hydroxyzine HCl) Allergies Sulfa (Sulfonamide Antibiotics) ABS Information ABS by [employer] We are an online clinic open 04/01. If you have any questions or comments about this visit, please call or email [email or web address] documented in this encounter Plan of Treatment Not on filedocumented as of this encounter Visit Diagnoses Not on filedocumented in this encounter Care Teams Water Plumber Relationship Specialty Start Date End Date No Primary/Referring, Phy PCP - General 10/23/17 documented as of this encounter
--- OUTSIDE RECORDS SUMMARY | 2022-05-26 15:15 | XMS_ITS | Clinical Summary ---
:1995 Author Organization [facility] Address [address] [place] [address] Care Team Providers Name Role Phone Oksana Haque MD Primary Care Provider Source Comments You are receiving this document as you are listed as the primary care provider,follow-up provider, or the patient has been referred to you for consultation.This is in compliance with the Medicare and Medicaid EHR Incentive Program,which states Providers who transition their patient to another setting of careor provider of care or refers their patient to another provider of care shouldprovide summarycare record for each transition of care or referral. Virtual Fairground Allergies Active Allergy Reactions Severity Noted Date Comments Sulfa Antibiotics Itching 11/10/2017 Sulfa Antibiotics Hives High 12/24/2020 Medications Medication Sig Dispensed Refills Start Date End Date Status levonorgestrel 1 Each by 0 01/31/2018 01/30/2023 Act liliana (MIRENA) 20 MCG/24HR Intrauterine route IUDIndications: continuous. Encounter for IUD insertion hydrOXYzine HCl Take 1-2 Tablets 30 Tablet 3 12/24/2020 Active (ATARAX) 25 MG by mouth three tablet times a day as needed for Anxiety. traZODone (DESYREL) Take 1-2 Tablets 60 Tablet 1 02/24/2021 Active 50 MG by mouth daily at tabletIndications: bedtime for 60 Depression with days. anxiety (HRC) FLUoxetine (PROZAC) Take 3 Capsules by 90 Capsule 3 02/24/2021 Active 10 MG mouth daily for 60 capsuleIndications: days. In 1 week Depression with increase to 20 mg anxiety (HRC) daily levonorgestrel 1 Each by 0 05/14/2021 05/13/2027 Act liliana (MIRENA) 20 MCG/24HR Intrauterine route IUDIndications: continuous. Encounter for insertion of intrauterine contraceptive device LORazepam (ATIVAN) 1 TAKE 1 TABLET BY 0 05/01/2021 Active MG tablet MOUTH ONCE FOR 1 DOSE. ketorolac (TORADOL) Take 1 Tablet by 20 Tablet 2 06/30/2021 Active 10 MG tablet mouth every 6 hours as needed for Pain. Active Problems Problem Noted Date IUD (intrauterine device) in place 05/14/2021 Overview: Mirena IUD inserted 05/14/2021 --Lot # [id number] Encounters Date Type Specialty Care Team Description 04/21/2022 josep car from Last 3 Months Immunizations Name Administration Dates Next Due 9vHPV (Gardasil 9) 10/24/2019, 11/29/2017, 11/29/2017 DTaP 1995 HepA Ped/Adol (1-18 yrs) 11/02/2012 HepB Adult (Engerix-B, 20+ yrs, 3 dose 02/20/2019, 9 series) HepB, Unspecified Formulation 1997 Hib, Unspecified Formulation 1997 Influenza IIV4 (Quadrivalent) 0.5mL 04/10/2021, 04/10/2019 ([id number]) MMR 12/29/2018 Pfizer (Comirnaty) COVID-19, 12+ Yrs 04/10/2021, 08/01/2020, 07/11/2020 Purple Top Polio, Unspecified Formulation 1997 Tdap 11/02/2012, 11/02/2012 Varicella 02/20/2019, 12/29/2018 Family History Relation Name Status Comments Father Alive Mother Alive Brother 1 full Alive Brother 2 half Alive Brother 3 half Alive Brother 4 half Alive Brother 5 half Alive Brother 6 Alive Brother 7 Alive Brother 8 Alive Brother 9 Alive Maternal Grandfather Alive Maternal Grandmother Alive Paternal Grandfather Alive Paternal Grandmother Alive Sister 1 full Alive Sister 2 half Alive Sister 3 half Alive Sister 4 half Alive Sister 5 Alive Sister 6 Alive Sister 7 Alive Sister 8 Alive Social History Tobacco Use Types Packs/Day Years Used Date Smoking Tobacco: Every Day Cigarettes 0.3 Smokeless Tobacco: Never Comments: 5 per day Alcohol Use Standard Drinks/Week Comments Yes 0 (1 standard drink = 0.6 oz pure alcoho l) social Sex Assigned at Date Recorded Not on file Last Filed Vital Signs Vital Sign Reading Time Taken Comments Blood Pressure 120/87 06/30/2021 2:05 PM MOBILE APPLICATION ARCHITECT Pulse 94 06/30/2021 2:05 PM MOBILE APPLICATION ARCHITECT Temperature 36.9 ??C (98.4 ??F) 05/22/2018 2:11 PM MOBILE APPLICATION ARCHITECT Respiratory Rate 16 10/23/2017 1:50 PM CDT Oxygen Saturation 99% 05/22/2018 2:11 PM MOBILE APPLICATION ARCHITECT Inhaled Oxygen Concentration - - Weight 77 kg (169 lb 12.8 oz) 06/30/2021 2:00 PM MOBILE APPLICATION ARCHITECT Height 173.4 cm (5' 8.25) 04/16/2021 2:09 PM CDT Body Mass Index 25.63 04/16/2021 2:09 PM CDT Plan of Treatment Health Maintenance Due Date Last Done Comments Hep C Screening (Preventive 1995 Services) Pneumococcal (1 - PCV) 2003 HepA (2 of 2 - 2-dose series) 05/05/2013 11/02/2012 HIV Screening (Preventive 2013 Services) Adult Preventive Visit 2015 HPV Vaccine (3 - 3-dose 02/24/2020 10/24/2019, series) 11/29/2017, 11/29/2017 COVID-19 Vaccine (4 - Booster 06/05/2021 04/10/2021, for Pfizer series) 08/01/2020, 07/11/2020 Influenza (#1) 2022 04/10/2021, 04/10/2019 Chlamydia 04/16/2022 04/16/2021, 03/15/2017 (Completed) DTaP/Tdap/Td (3 - Tdap) 11/02/2022 11/02/2012, 11/02/2012, 1997 Pap 12/25/2023 12/24/2020 Zoster/Shingles (1 of 2) 2047 Hib Aged Out 1997 No longer eligib le based on patient's age to complete this to pic IPV (Polio) Aged Out 1997 No longer eligib le based on patient's age to complete this to pic HepB Completed 02/20/2019, 11/16/2018, 1997 Varicella Completed 02/20/2019, 12/29/2018 MCV4 Aged Out No longer eligib le based on patient's age to complete this to pic Insurance Payer Benefit Plan / Subscriber ID Effective Phone Address T ype Group Dates MEDICA MED[employer] HEALTH [id number] 2020-[place] [address] [place] [address] [employer] SELF [id number] 2021-Prese [employer] CARE nt Jennifer King Personal/Family Self [phone] [facility] (Home) [place] [address] Care Teams Front End Drupal Developer Relationship Specialty Start Date End Date Oksana Haque MD PCP - General Family Practice 02/07/21 [address] [place] [address]
--- OUTSIDE RECORDS SUMMARY | 2022-05-26 15:15 | XMS_ITS | Encounter Summary ---
:1995 Author Organization [facility] Address [address] [place] [address] Care Team Providers Name Role Phone Oksana Haque MD Primary Care Provider Reason for Visit Reason Comments IUD Encounter Details Date Type Department Care Team Description 04/17/2021 Telephone [facility], Tabitha Doe MD IUD Gynecology Physician s [address] [facility] [address] [facility] [place] [address] [place], [place] [address] [phone] Social History Tobacco Use Types Packs/Day Years Used Date Smoking Tobacco: Every Day Cigarettes 0.3 Smokeless Tobacco: Never Comments: 4-5 per day Alcohol Use Standard Drinks/Week Comments Yes 0 (1 standard drink = 0.6 oz pure alcoho l) social Sex Assigned at Date Recorded Not on file documented as of this encounter Nursing Notes Emily Nelson RN - 04/21/2021 8:03 AM CST Letter sent. MADELINE Diaz PER TENDER Emily Nelson RN - 04/18/2021 7:57 AM CDT Left message to call back. MADELINE Diaz Emily Nelson RN - 04/17/2021 10:07 AM CDT Left message to call back. Emily RN Nida Reno - 04/17/2021 10:03 AM CDT Appointment Information IUD INSERTION - 05/14/2021 Appointment Status: Scheduled Tabitha Ponce MD Department: CORRECTIONAL CASEWORK SPECIALIST Time: 1:00 PM Length: 20 minutes documented in this encounter Plan of Treatment Not on filedocumented as of this encounter Visit Diagnoses Not on filedocumented in this encounter Care Teams Battery Container Tester Aluminum Relationship Specialty Start Date End Date Oksana Haque MD PCP - General Family Practice 02/07/21 [address] [place] [address] documented as of this encounter
--- OUTSIDE RECORDS SUMMARY | 2022-05-26 15:15 | XMS_ITS | Encounter Summary ---
:1995 Author Organization [facility] Address [address] [place] [address] Care Team Providers Name Role Phone Oksana Haque MD Primary Care Provider Encounter Details Date Type Department Care Team Description 04/21/2022 nicola Weber [phone] Social History Tobacco Use Types Packs/Day Years Used Date Smoking Tobacco: Every Day Cigarettes 0.3 Smokeless Tobacco: Never Comments: 5 per day Alcohol Use Standard Drinks/Week Comments Yes 0 (1 standard drink = 0.6 oz pure alcoho l) social Sex Assigned at Date Recorded Not on file documented as of this encounter Progress Notes FAMILY MEDICINENICOLA PROVIDER - 04/21/2022 1:45 PM CST nicola Treatment Plan Diagnosis Urinary Tract Infection Visit Date April 22, 2022 Jennifer King Date of : 89 Provider Cheryl Schofield, Physician Associate Automation Engineer Note From Provider Good morning -'ve sent a prescription for an antibiotic to your pharmacy. Take the medication with a full meal twice a day and remember to drink lots of fluids. I sent the yeast medication as well if you develop symptoms of a yeast infection. We are here for you for any questions or concerns alongthe way, just Request a Callback. Feel better soon! Treatment Plan Since you have a bacterial infection, let's try an antibiotic. I sent a prescriptionto [facility]. I've also listed a few of the best ways to soothe your discomfortand some additional self-care tips to get you on the road to feeling better.If your symptoms don't start to improve after 3 days, or if you havequestions, please select Help to Request a callback andwe'll talk about your next steps for free. Order(s) nitrofurantoin monohyd/m-cryst 100 mg capsule Take 1 capsule by mouth every twelve hours as directed for 5 days Note: Take with food to improve absorption. Refills: None fluconazole 150 mg tablet Take 1 tablet by mouth single dose as directed Note: Repeat in 3 days if symptoms persist Refills: None Sent To: [facility] [address] [place] [address] [phone] Treatment Plan Self Care Tip Topics Drink Water Avoid Caffeine Warm Packs Pain Relief with AZO What to Expect If you follow the recommendations I made on the Treatment tab, your symptomsshould start to improve in about 3 days. If your symptoms don't start to improve after 3 days, or if you have questions, please select Help toRequest a callback and we'll helpdetermine your next step for free. What to Watch Out For Give us a call if you experience: ??? High fever ??? Shaking chills ??? Worsening pain with urination ??? Severe pain in your back, abdomen or pelvis My Conditions, Orders, Allergies as of April 22, 2022 Standard condition list Polycystic Ovarian Syndrome (PCOS) Current orders fluconazole (fluconazole) nitrofurantoin monohyd/m-cryst (nitrofurantoin monohyd/m-cryst) Allergies Sulfa (Sulfonamide Antibiotics) Rackwise Information [employer] by [employer] We are an online clinic open 04/01. If you have any questions or comments about this visit, please call or email [email or web address] RVISOR AIR CONDITIONING INSTALLER documented in this encounter Plan of Treatment Not on filedocumented as of this encounter Visit Diagnoses Not on filedocumented in this encounter Care Teams Intensivist Relationship Specialty Start Date End Date Oksana Haque MD PCP - General Family Practice 02/07/21 [address] [place] [address] documented as of this encounter
--- OUTSIDE RECORDS SUMMARY | 2022-05-26 15:15 | XMS_ITS | Encounter Summary ---
:1995 [facility] Organization [facility] Address [address] [place] [address] Care Team Providers Name Role Phone Oksana Haque MD Primary Care Provider Encounter Details Date Type Department Care Team Description 04/16/2021 Notes/Orders [place] Debra Haji, Nitesh fl reening Obstetrics and SENIOR INSPECTOR for STI (sexually Gynecology Physician s [facility] transmitted [address] [place] [address]. CLINIC infection) [place], [place] [address] [address] [facility] [phone] [place] [address] Social History Tobacco Use Types Packs/Day Years [...] Name Priority Date/Time Associated Diagnosis Comme nts CHLAMYDIA & GC (14 Routine 04/16/2021 3:14 PM Routine screenin g Results for this YEARS AND OLDER) CDT for STI (sexually proced ure are in transmitted the results infection) section. documented in this encounter Results Chlamydia & GC (14 Years and Older) (04/16/2021 3:14 PM CDT) [facility] Method Time Signature Chlamydia Not Not 04/17/2021 [facility] Trachomatis Detected Detected 4:38 AM CDT [facility] STD N. gonorrhoeae Not Not 04/17/2021 [facility] STD Detected Detected 4:38 AM CDT [facility] Specimen Anatomical Collection Method Collection Time Receive d Time (Source) Location / / Volume Laterality Swab STD SPECIMEN FROM Non-blood 04/16/2021 3:14 PM 04/16/20 4:00 VAG[facility] / Unknown Collection / CDT PM CDT Unknown Narrative [facility] - 04/17/2021 4:38 AM CDT Test performed by Manager Wealth Management Mediated Amplification (TMA). Tabitha Ponce MD LAB_1 Performing Organization Address City/State/ZIP Code Phon e Number [facility] [address] [phone] documented in this encounter Visit Diagnoses Diagnosis Routine screening for STI (sexually rivera smitted infection) Screening examination for venereal disea se documented in this encounter Care Teams Spindle Repairer Relationship Specialty Start Date End Date Oksana Haque MD PCP - General Family Practice 02/07/21 [address] [place] [address] documented as of this encounter
--- OUTSIDE RECORDS SUMMARY | 2022-05-26 15:15 | XMS_ITS | Encounter Summary ---
:1995 Author Organization [facility] Address [address], [place] [address] Care Team Providers Name Role Phone Oksana Haque MD Primary Care Provider Reason for Visit Procedure/Equipment (Routine) - Incomplete Specialty Diagnoses / Procedures Referred By Contact Refer red To Contact Diagnoses Abnormal uterine bleeding Encounter for IUD insertion Tabitha Ponce MD Procedures OBGYN Pelvic/Rigger Chief Ultrasound OBGYN Pelvic/Rigger Chief Ultrasound [address] [place], [place] [address] Referral ID Status Reason Start Date Expiration Date Visits V isits Requested Authorized [id number] Incomplete 04/16/2021 07/16/2022 1 1 Encounter Details Date Type Department Care Team Description 05/14/2021 Office Visit [place] lithograph press operator Tabitha Ponce, Abno rmal uterine bleeding; Ultrasound Encounter for IUD insertion [address] [facility]. [address] [place], [place] [address] [place], [place] [phone] (Wo rk) Social History Tobacco Use Types [...] Name Priority Date/Time Associated Comments Diagnosis OBGYN PELVIC/RIGGER HELPER Routine 05/14/2021 1:38 PM Abnormal uterine R esults for this ULTRASOUND PVC MONITOR bleeding procedure are in Encounter for IUD the result s insertion section. documented in this encounter Results OBGYN Pelvic/Rigger Chief Ultrasound (05/14/2021 1:38 PM PVC MONITOR) Analysis Performed At Patho logist Time Signature Uterus AP Diameter 3.60 cm EXTERNAL (Height) RESULTS Uterus 7.50 cm EXTERNAL Longitudinal RESULTS Diameter (Length) Uterus Transverse 4.10 cm EXTERNAL Diameter (Width) RESULTS Uterus Volume 57.96 ml EXTERNAL RESULTS Endometrium 6.10 mm EXTERNAL Thickness RESULTS Left Ovary 4.30 cm EXTERNAL Perpendicular RESULTS Diameter (Height) Left Ovary 5.70 cm EXTERNAL Longitudinal RESULTS Diameter (Length) Left Ovary 4.90 cm EXTERNAL Hilum-Cortex RESULTS Diameter (Width) Left Ovary Volume 62.88 ml EXTERNAL RESULTS Right Ovary 2.70 cm EXTERNAL Perpendicular RESULTS Diameter (Height) Right Ovary 3.40 cm EXTERNAL Longitudinal RESULTS Diameter (Length) Right Ovary 3.10 cm EXTERNAL Hilum-Cortex RESULTS Diameter (Width) Right Ovary Volume 14.90 ml EXTERNAL RESULTS Anatomical Region Laterality Modality Pelvis Ultrasound Specimen (Source) Anatomical Location Collection Method / Collectio n Time Received Time / Laterality Volume Narrative 05/14/2021 3:22 PM PVC MONITOR RIGGER HELPER Ultrasound Exam performed on: ??05/14/2021 Referring provider: Tabitha Ponce MD Referring clinic: [facility] Clinical indications: Abnormal uterine b leeding Encounter for IUD insertion LMP: ??04/30/21 Bunghole Borer(s) initials: KW The pelvic organs are imaged using: both transvaginal and transabdominal transducers to better visualize the pelv ic anatomy. Today's ultrasound was compared to previ ous report and images from: US 01/01/2020, CT 01/01/2020 Measurements and comments Uterus: Longitudinal AP Transverse 7.50 3.60 4.10 cm Position: ??anteverted Comments: ??symmetrical Cervix and lower uterine segment are: No rmal Myometrium: homogeneous Saline infusion sonohysterogram: no Endometrium: 6.10 mm, smooth and regular IUD is seen in appropriate position in e ndometrial cavity Right ovary: ?? Longitudinal AP Transverse Volume 3.40 3.10 2.70 cm 14.90 ml Comments: multiple small cysts around th e periphery Left ovary: Longitudinal AP Transverse ?? 5.70 4.90 4.30 cm 62.88 ml Comments: complex anechoic area measurin g 5.1 x 3.7 x 4.2 cm Adnexa: ??no masses seen Peritoneal fluid: present Other procedures done: IUD placement don e by Dr. Ponce. Ultrasound order placed for patient to [facility] follow up in 6-12 weeks for left ovarian cyst and IUD localizati on. Impression: Normal appearing uterus. Normal appearing endometrium with IUD in appropriate position following placement. The right ovary meets sonographic criter ia for polycystic ovarian morphology. The left ovary contains hemorrhagic appe aring cyst measuring 5.1cm in maximal dimension. ??She had no pain ove r this cyst. Plan: These findings were reviewed with the patient. Recommend repeat ultrasound in 6-12 week s to ensure resolution of her left ovarian cyst. She will follow up with her referring pr jacinda. Amy Galvez MD Tabitha Ponce MD RAD US documented in this encounter Visit Diagnoses Diagnosis Abnormal uterine bleeding Unspecified disorder of menstruation and other abnormal bleeding from female genital tract Encounter for IUD insertion Encounter for insertion of intrauterine contraceptive device documented in this encounter Care Teams Color Room Attendant Relationship Specialty Start Date End Date Oksana Haque MD PCP - General Family Practice 02/07/21 [address] [place] [address] documented as of this encounter
--- OUTSIDE RECORDS SUMMARY | 2022-05-26 15:15 | XMS_ITS | Encounter Summary ---
:1995 Author Organization [facility] Address [address] [place] [address] Care Team Providers Name Role Phone No Primary/Referring, Phy Primary Care Provider Unavailable Encounter Details Date Type Department Care Team Description 01/19/2020 nicola Weber [phone] Social History Tobacco Use Types Packs/Day Years Used Date Smoking Tobacco: Every Day Smokeless Tobacco: Never Comments: 3-4 cigs per day Alcohol Use Standard Drinks/Week Comments Yes 0 (1 standard drink = 0.6 oz pure alcoho l) rare use - once a month Sex Assigned at Date Recorded Not on file documented as of this encounter Progress Notes FAMILY MEDICINENICOLA PROVIDER - 01/19/2020 12:00 AM CDT nicola Treatment Plan Diagnosis Urinary Tract Infection Visit Date January 19, 2020Octobermihaela King Date of : 89 Provider Radha Lion, Physician Air Control/Anti Air Warfare Officer Note From Provider PASCUAL Rodriguez. Thank you for using nicola today and for speaking with me. So sorry to hear you're having these symptoms. I've prescribed an antibiotic for your UTI. The antibiotic I prescribed for you should be taken with a full meal twice a day (i.e. with breakfast and dinner). Please drink lots of fluids and take all the prescribed days of your antibiotic course, even if you feel better sooner. Pleasereview the plan created for you today! Take care and feel better soon! Radha HINDS Treatment Plan Since you have a bacterial infection, let's try an antibiotic. I sent a prescriptionto [facility] Kateryna Cervantes. I've also listed a few of the best ways to soothe your discomfortand some additional self-care tips to get you on the road to feeling better.If your symptoms don't improve after 3 days, or if you havequestions, please select Help to Request a Call Back andwe'll talk about your next steps for free. Order(s) cephalexin 500 mg capsule Take 1 capsule oral every twelve hours as directed for 7 days Note: Refills: None Sent To: [facility] Kateryna Cervantes [address] [place] [address] Treatment Plan Self Care Tip Topics Warm Packs Drink Water Avoid Caffeine What to Expect If you follow the [...] My Conditions, Orders, Allergies as of January 19, 2020 Standard condition list Polycystic Ovarian Syndrome (PCOS) endometriosis Current orders cephalexin (cephalexin) Lexapro (escitalopram oxalate) Allergies Sulfa (Sulfonamide Antibiotics) sourceasy Information sourceasy by [email or web address] We are an online clinic open 04/01. If you have any questions or comments about this visit, please call or email [email or web address]. documented in this encounter Plan of Treatment Not on filedocumented as of this encounter Visit Diagnoses Not on filedocumented in this encounter Care Teams Pharmacovigilance Scientist Relationship Specialty Start Date End Date No Primary/Referring, Phy PCP - General 10/23/17 documented as of this encounter
--- OUTSIDE RECORDS SUMMARY | 2022-05-26 15:15 | XMS_ITS | Encounter Summary ---
:1995 Author Organization [facility] Address [address], [place] [address] Care Team Providers Name Role Phone Oksana Haque MD Primary Care Provider Encounter Details Date Type Department Care Team Description 01/14/2018 Correspondence None No Primary/Referring, Phy NEW PATIENT HISTORY Social History Tobacco Use Types Packs/Day Years [...] on filedocumented in this encounter Care Teams Frame Stripper Relationship Specialty Start Date End Date Oksana Haque MD PCP - General Family Practice 02/07/21 [address] [place], [place] [address] documented as of this encounter
--- OUTSIDE RECORDS SUMMARY | 2022-05-26 15:15 | XMS_ITS | Encounter Summary ---
:1995 Author Organization [facility] Address [address] [place] [address] Care Team Providers Name Role Phone No Primary/Referring, Phy Primary Care Provider Unavailable Reason for Visit Reason Comments Same Day/Next Day Appt. Encounter Details Date Type Department Care Team Description 01/31/2018 Telephone [place] [facility] Kandi Giordano Same Day/Next Day and Gynecology MD [facility] [address] [place], [place] [phone] (Wo rk) Social History Tobacco Use Types Packs/Day Years Used Date Smoking Tobacco: Every Day Smokeless Tobacco: Never Comments: 3-4 cigs per day Alcohol Use Standard Drinks/Week Comments Yes 0 (1 standard drink = 0.6 oz pure alcoho l) rare use - once a month Sex Assigned at Date Recorded Not on file documented as of this encounter Nursing Notes Radha Luo RN - 01/31/2018 3:06 PM CDT Pt is running late but should be here around 3:[address] Giordano's nurse to have her come inat that time. Pt informed. Radha Luo RN Nagi Arce - 01/31/2018 2:59 PM CDT Appointments - Same Day / Future Patient would like appointment with: Any Provider Encounter Clinician: Kandi Giordano MD Patient requesting appointment for: To speak to a nurse about abnormal bleeding, Pt missed an appt she had at 3pm today but she will like to speak with Dr Giordano's nurse, she feels the BC is not working Wants/Needs to be seen within: 2 hour(s) Is it okay to leave detailed message on your voicemail? Yes Nagi Arce documented in this encounter Plan of Treatment Not on filedocumented as of this encounter Visit Diagnoses Not on filedocumented in this encounter Care Teams Membership Sales Manager Relationship Specialty Start Date End Date No Primary/Referring, Lindy PCP - General 10/23/17 documented as of this encounter
--- OUTSIDE RECORDS SUMMARY | 2022-05-26 15:15 | XMS_ITS | Encounter Summary ---
:1995 [facility] Address [address] [place] [address] Care Team Providers Name Role Phone No Primary/Referring, Phy Primary Care Provider Unavailable Reason for Visit Consult/Transfer Care (Routine) - Closed Specialty Diagnoses / Procedures Referred By Contact Refer red To Contact Diagnoses Encounter for immunization Kandi Giordano MD [address] [place] [address] Referral ID Status Reason Start Date Expiration Date Visits Requ ested Visits Authorized [id number] Closed 11/29/2017 02/28/2019 1 1 Encounter Details Date Type Department Care Team Description 01/31/2018 Office Visit [place] Kandi Giordano Encounter for IUD insertion (Primary Dx); Obstetrics and MD [place] Encounter for surveillance of vaginal ri ng hormonal contraceptive device; Gynecology Physician s [address] Fatigue, unspecified type [address] [place], [place] [address] [place], [place] [phone] Social History Tobacco Use Types Packs/Day Years [...] Sign Reading Time Taken Comments Blood Pressure 114/70 01/31/2018 3:35 PM CDT Pulse 74 01/31/2018 3:35 PM CDT Temperature - - Respiratory Rate - - Oxygen Saturation - - Inhaled Oxygen Concentration - - Weight - - Height - - Body Mass Index - - documented in this encounter Patient Instructions Patient InstructionsKandi Giordano MD - 01/31/2018 3:47 PM CDT Return in 6 weeks for IUD check. Go to lab for blood tests. IUD Insertion Do not put anything into your vagina for the next 48 hours ?? pads, not tampons for any spotting or bleeding ?? do not have intercourse ?? do not douche Your monthly period may become irregular for the first 3-6 months. You may also experience frequent spotting or light bleeding; a few women have heavy bleeding during this time. After your body adjuststo the IUD, the number of bleeding days is likely to decrease and you may even find that your periods stop altogether. You may take ibuprofen or acetaminophen (Tylenol) for any minor cramping that may occur. Call the clinic with any abdominal pain, fever or other concerns. Check for the presence of the IUD string by reaching to the back of the vagina with your fingers. Check for the string before intercourse for the next 6 weeks and then after each menses. Warning Signs: Within the first 3 weeks of Insertion ?? Fever (greater than 101) ?? Chills ?? Strong or sharp pain in your stomach or belly At any time ?? Feeling (breast tenderness, nausea, vomiting) ?? Positive home test If you develop any of the above warning signs, see your healthcare provider. You can also call the clinic at [phone]. documented in this encounter Progress Notes Kandi Giordano MD - 01/31/2018 3:47 PM CDT TORSTEN King is a 22 yo P0 who presents with concerns regarding spotting using Nuva Ring. She was trying continuous use - 4 weeks at a time, but has had breakthrough bleeding for past month. She took ring out on 01/24 and has had continued heavy bleeding, just now starting to lighten up. Has felt tired, with increased headaches since having all this bleeding. She has been feeling VERY tired lately, difficulty getting out of bed for work. She desires to try LARC - specifically progesterone IUD. She has been counseled regarding the risks, benefits and alternatives to IUD use and her questions have been answered. She wishes to proceed with the insertion of the Mirena. has been ruled out by the following: No unprotected intercourse since LMP and Negative pregancy test today. No results found for: CHLAMYDIA, GREGORY PROCEDURE BP 114/70 Pulse 74 LMP (LMP Unknown) With the patient in the lithotomy position, a bimanual examination was done. The uterus is midpositon. A speculum was placed in the vagina and the cervix was prepped with Betadine. A tenaculum was placedon the anterior lip of the cervix. The endometrial cavity was sounded to 7.5 cm. The Mirena IUD was inserted according to the manufacturers directions without difficulty. The IUD strings were trimmed to a length of 2 cm. She tolerated the procedure well. Jennifer King was taught how to check for the IUD string and was asked to return in six weeks for anIUD check. The IUD should be removed in 5 years and may be removed at any time at her request. Patient requests labs for evaluation of fatigue - will get hgb, vitamin D, and ferritin level. Also requested time off from work after IUD placement, given note for today and tomorrow, discussed would not expect her to need further time off for this. In addition to procedure, 15 minutes were spent in counseling regarding contraception options. Kandi Giordano MD documented in this encounter Plan of Treatment Not on filedocumented as of this encounter Results Vitamin D 25-Hydroxy, Total (01/31/2018 4:23 PM CDT) athologist Signature Vitamin 36 30 - 80 [facility] D,25-OH, Tot ng/mL [facility]IES Comment: Deficiency: ??< 20 ng/mL Insufficiency: ??20-29 ng/mL Optimum Level: ??30-80 ng/mL Possible Toxicity: > 80 ng/mL Specimen Anatomical Collection Method Collection Time Receive d Time (Source) Location / / Volume Laterality 01/31/2018 4:23 PM 8 4:25 CDT PM CDT Narrative [facility] - 01/31/2018 7:03 PM C DT Performed at [facility], [address] [place] [address] ??[id number] Kandi Giordano MD LAB_1 Performing Organization Address [facility]/ZIP Code Phon e Number [facility] [phone] Ferritin (01/31/2018 4:23 PM CDT) athologist Signature Ferritin 36 9 - 204 [facility] ng/ml Specimen Anatomical Collection Method Collection Time Receive d Time (Source) Location / / Volume Laterality 01/31/2018 4:23 PM 8 4:25 CDT PM CDT Narrative [facility] - 01/31/2018 6:56 PM C DT Performed at [facility], [address] [place] [address] ??[id number] Kandi Giordano MD LAB_1 Performing Organization Address [facility] Phon e Number [facility] [phone] Hemoglobin, Blood (01/31/2018 4:23 PM CDT) athologist [facility] Hemoglobin 13.5 12.0 - 16.0 [facility] g/dl Specimen Anatomical Collection Method Collection Time Receive d Time (Source) Location / / Volume Laterality 01/31/2018 4:23 PM 8 4:25 CDT PM CDT Narrative [facility] - 01/31/2018 6:36 PM C DT Performed at [facility], [address] [place] [address] ??[id number] Kandi Giordano MD LAB_1 Performing Organization Address [facility]/ZIP Code Phon e Number [facility] [phone] Test (Urine) (01/31/2018 3:57 PM CDT) [facility] gist Method Time Signature HCG, Urine Negative [facility] Negative = <20 mIU/ml [facility] If is suspected, suggest repeat in 48-72 hours or confirm results with a quantitative hCG test. Specimen Anatomical Collection Method Collection Time Receive d Time (Source) Location / / Volume Laterality Urine specimen 01/31/2018 3:57 PM 018 3:59 (specimen) CDT PM CDT Narrative [facility] - 01/31/2018 4:07 PM C DT Performed at [facility], [address] [place] [address] Kandi Giordano MD LAB_1 Performing Organization Address City/State/ZIP Code Phon e Number [facility] [phone] documented in this encounter Visit Diagnoses Diagnosis Encounter for IUD insertion - Primary Encounter for insertion of intrauterine contraceptive device Encounter for surveillance of vaginal ri ng hormonal contraceptive device Fatigue, unspecified type Encounter for IUD insertion Encounter for insertion of intrauterine contraceptive device Fatigue, unspecified type documented in this encounter Administered Medications Inactive Administered Medications - up to 3 most recent administrations Medication Order MAR Action Action Date Dose Rate Site levonorgestrel (MIRENA) 20 Given 01/31/2018 5:06 PM CDT 1 Each MCG/24HR intrauterine device 1 Each 1 Each, Intrauterine, ONCE, On 01/31/18 at 1615, For 1 dose, This medication is a Category X medication. Therefore, it should not be given to patients. The patient's status must be verified before administering this medication. Hazardous waste disposal required. documented in this encounter Care Teams Senior Insight Manager Relationship Specialty Start Date End Date No Primary/Referring, Phy PCP - General 10/23/17 documented as of this encounter
--- OUTSIDE RECORDS SUMMARY | 2022-05-26 15:15 | XMS_ITS | Encounter Summary ---
:1995 Author Organization [facility] Address [address] [place] [address] Care Team Providers Name Role Phone Oksana Haque MD Primary Care Provider Reason for Visit Reason Comments IUD INSERTION Encounter Details Date Type Department Care Team Description 05/14/2021 Office Visit [place], Encounter for insertion of intrauterine contraceptive device (Primary Dx); Obstetrics and MD Left ovarian cyst Gynecology Physician s [address] [facility] [address] [facility] [place], [place] [phone] Social History Tobacco Use Types Packs/Day Years Used Date Smoking Tobacco: Every Day Cigarettes 0.3 Smokeless Tobacco: Never Comments: 4-5 per day Alcohol Use Standard Drinks/Week Comments Yes 0 (1 standard drink = 0.6 oz pure alcoho l) social Sex Assigned at Date Recorded Not on file documented as of this encounter Patient Instructions Patient InstructionsTabitha Ponce MD - 05/14/2021 1:00 PM CST 1) Return to clinic in 6 months for IUD check and ovarian cyst check 2) Schedule two visits - MD visit and US check IUD Insertion Do not put anything into [...] You can also call the clinic at [phone]. SUPPORT TECHNICIAN documented in this encounter Progress Notes Tabitha Ponce MD - 05/14/2021 1:00 PM CST CC: IUD Insertion S: Jennifer King is a 26 y.o. P0 presenting for insertion of a Mirena IUD. She has used mirena IUD, POP, OCPs in the past for control and is interested in this alf option. Did have spottingand we had discussed add back estrogen as needed After a thorough discussion of the effectiveness, expected side effects and menstral changes as well as risks specific to an IUD (perforation and need for laparoscopy, infection, expulsion, higher risk of ectopic if does occur) she provided consent to proceed. has been ruled out by no sex for 6 months. O: No Procedure: On bimanual exam, her uterus is anteverted and there are no adnexal masses. A speculum was inserted, her cervix was visualized and prepped with betadine. A single-tooth tenaculum was placed on the anterior lip. Sterile gloves were donned, the uterus was sounded to 7cm, and the IUD was placed into the uterus under US guidance per skydiving instructor's instructions without difficulty. The strings were trimmed to a length of 4cm. All instruments were removed, the procedure was complete, and she tolerated it very well. US confirmed correct location following placement. A/P: 26 y.o. s/p placement of Mirena IUD under US guidance. --Lot # [id number] --She was taught how to feel the strings and asked to come back in 4-6 weeks for an IUD check, sooner if any pain, fevers, abnl discharge or other concerns -- hemorrhagic cyst 5cm on left ovary, no pain on this side. US order placed to follow-up cyst in 6-12 weeks per recommendation from US MD Tabitha Ponce MD 05/14/2021 1:34 PM SUPPORT TECHNICIAN documented in this encounter Plan of Treatment Not on filedocumented as of this encounter Visit Diagnoses Diagnosis Encounter for insertion of intrauterine contraceptive device - Primary Left ovarian cyst Other and unspecified ovarian cyst documented in this encounter Administered Medications Inactive Administered Medications - up to 3 most recent administrations Medication Order MAR Action Action Date Dose Rate Site levonorgestrel (MIRENA) 20 Given 05/14/2021 4:13 PM LIFE SUPPORT TECHNICIAN 1 Each MCG/24HR intrauterine device 1 Each 1 Each, Intrauterine, ONCE, On Wed05/14/21 at 1400, For 1 dose, This medication is a Category X medication. Therefore, it should not be given to patients. The patient's status must be verified before administering this medication. Hazardous waste disposal required. Administration: Single glove documented in this encounter Care Teams Machine Operator Slitter Technician Relationship Specialty Start Date End Date Oksana Haque MD PCP - General Family Practice 02/07/21 [address] [place] [address] documented as of this encounter
--- OUTSIDE RECORDS SUMMARY | 2022-05-26 15:15 | XMS_ITS | Encounter Summary ---
:1995 Author Organization [employer] Address [address] [place] [address] Care Team Providers Name Role Phone No Primary/Referring, Phy Primary Care Provider Unavailable Reason for Referral Consult/Transfer Care (Routine) - Closed Specialty Diagnoses / Procedures Referred By Contact Refer red To Contact Diagnoses Depression with anxiety (HRC) Oksana Haque MD [address] [place], [place] [address] Referral ID Status Reason Start Date Expiration Date Visits Requ ested Visits Authorized [id number] Closed 12/24/2020 03/25/2022 1 1 Scheduling Instructions Your provider has recommended an appoint ment with Behavioral Health. You may call [phone] to schedule your appointmen t. This recommended service/s may not be covered by your health plan (health insu lin). To find out your specific benefit coverage, please call the number on your insurance card.?? Please note that in order to maintain access for all patients, [facility] does have a late cancellation policy.?? In order to avoid being restri cted from scheduling future appointments in Behavioral Health you will need to cance l at least 48 hours in advance. We request you that you arrive 30 minutes before yo ur first appointment to complete paperwork. Reason for Visit Reason Comments DEPRESSION ANXIETY Encounter Details Date Type Department Care Team Description 12/24/2020 Office Visit [facility] Oksana Haque MD Depression with anxiety (Primary Dx); Practice [address] Impacted cerumen of left ear [address] [place], [place] [phone] Social History Tobacco Use Types Packs/Day Years Used Date Smoking Tobacco: Every Day Smokeless Tobacco: Never Alcohol Use Standard Drinks/Week Comments Yes 0 (1 standard drink = 0.6 oz pure alcoho l) social Sex Assigned at Date Recorded Not on file documented as of this encounter Last Filed Vital Signs Vital Sign Reading Time Taken Comments Blood Pressure 116/73 12/24/2020 3:00 PM CDT Pulse 87 12/24/2020 3:00 PM CDT Temperature - - Respiratory Rate - - Oxygen Saturation - - Inhaled Oxygen Concentration - - Weight 73.9 kg (163 lb) 12/24/2020 3:00 PM CDT Height - - Body Mass Index 24.6 12/24/2020 1:42 PM CDT documented in this encounter Patient Instructions Patient InstructionsKOksana hutchinson MD - 12/24/2020 3:00 PM CDT Should quit smoking Should follow-up with behavior health therapist Continue regular walks Minimize caffeine intake Prozac as directed Hydroxyzine as directed/as needed for anxiety , this can cause drowsiness Follow-up in 4 weeks for medication check Should get medical attention right away if there is any worsening of symptoms or new symptoms documented in this encounter Progress Notes Oksana Haque MD - 12/24/2020 3:00 PM CDT Jennifer King is a 25 y.o. old female came in to discuss depression and anxiety, was taking Lexapro 10 mg, took it for 10 months, felt like did not work and stopped taking it, did see therapist few times, due to insurance had to stop it, symptoms are getting worse, lot of anxiety about driving on highways, anxiety about work, waking up frequently, appetite varies, no more thoughts of hurting herself,remote history of suicidal attempt. Been doing every day walk, smoking 5 cigarettes a day, occasional alcohol. Does have family history of mental health, mom may have bipolar. Historical: Chief Complaint Patient presents with ??? DEPRESSION ??? ANXIETY Depression Do you take any prescription medication for this condition? Not taking- lexapro didn't seem to work Are you seeing a counselor or therapist? No How many times a week are you exercising regularly? 3 - 5 times per week, 30 minutes or more Have you diagnosed/treated for depression in the past? YES Do you have a family history of depression? YES- Mom has bipolar and anxiety No flowsheet data found. Social History Substance and Sexual Activity Alcohol Use Yes Comment: social Social History Tobacco Use Smoking Status Current Every Day Smoker Smokeless Tobacco Never Used Social History Substance and Sexual Activity Drug Use Not on file I have personally reviewed the patient's allergies, medications and past medical history in detail and updated the patient record as necessary. Observed: There were no vitals taken for this visit. Physical Exam: General Appearance: alert, well appearing and in no apparent distress HEENT: lids normal, sclera clear and conjunctiva normal and oropharynx clear, ear canals clear and TMs normal Neck: no lymphadenopathy and no thyromegaly or nodules Heart: regular rate and rhythm and no murmurs, gallops or rubs Lungs: clear to ausculation and no wheezes, rales or rhonchi Abdomen: soft, nondistended, nontender, no palpable masses and no organomegaly Assessment/Plan: Depression with anxiety (HRC) - Behavioral Health Impacted cerumen of left ear - [address] REMOVE IMPACTED EAR WAX UNI LEFT Other orders - FLUoxetine (PROZAC) 10 MG capsule; Take 1 Capsule by mouth daily for 60 days. In 1 week increase to 20 mg daily - hydrOXYzine HCl (ATARAX) 25 MG tablet; Take 1-2 Tablets by mouth three times a day as needed for Anxiety. Should quit smoking Should follow-up with behavior health therapist Continue regular walks Minimize caffeine intake Prozac as directed Hydroxyzine as directed/as needed for anxiety , this can cause drowsiness Follow-up in 4 weeks for medication check Should get medical attention right away if there is any worsening of symptoms or new symptoms Please see orders and patient instructions Oksana Haque MD Pati Barker LPN - 12/24/2020 3:00 PM CDT S: Patient has cerumen impaction. States has been using ear wax softening agent Yes. O: Cerumen observed in left ear canal(s). A: Patient history has been obtained. Dr. Haque reviewed history, assessed ears and placed order forear lavage. P: Left ear lavaged with tap water. all of the cerumen was removed. Otoscope evaluation post ear lavage to be completed by RN or clinician. Pati Barker LPN 12/24/2020, 4:01 PM documented in this encounter Plan of Treatment Scheduled Referrals Name Type Priority Associated Diagnoses Order [facility] Behavioral Health Referral Routine Depression with anxiety Ordered: 12/24/2020 documented as of this encounter Visit Diagnoses Diagnosis Depression with anxiety (HRC) - Primary Dysthymic disorder Impacted cerumen of left ear Impacted cerumen documented in this encounter Care Teams Clinical Information Systems Director Relationship Specialty Start Date End Date No Primary/Referring, Phy PCP - General 10/23/17 documented as of this encounter
--- OUTSIDE RECORDS SUMMARY | 2022-05-26 15:15 | XMS_ITS | Encounter Summary ---
:1995 Author Organization [facility] Address [address] [place] [address] Care Team Providers Name Role Phone No Primary/Referring, Phy Primary Care Provider Unavailable Reason for Referral Consult/Transfer Care (Routine) - Closed Specialty Diagnoses / Procedures Referred By Contact Refer red To Contact Diagnoses Encounter for immunization Kandi Giordano MD [address] [place] [address] Referral ID Status Reason Start Date Expiration Date Visits Requ ested Visits Authorized [id number] Closed 11/29/2017 02/28/2019 1 1 Scheduling Instructions Your provider has recommended an appoint ment with a [facility] nurse. A 7th grade social studies teacher will contact you within the next 3 in ess days to assist you in setting up this appointment. Reason for Visit Reason Comments DYSMENORRHEA IMMUNIZATIONS Consult/Transfer Care (Routine) - Closed Specialty Diagnoses / Procedures Referred By Contact Refer red To Contact Diagnoses Recurrent UTI Painful menstrual periods Juan Franco MD [address] [place] [address] Referral ID Status Reason Start Date Expiration Date Visits Requ ested Visits Authorized [id number] Closed 11/10/2017 02/09/2019 1 1 Encounter Details Date Type Department Care Team Description 11/29/2017 Office Visit [facility] Keys Dysmenorrh ea (Primary Dx); Obstetrics and [place], Encounter for immunization Gynecology Physician s [address] [place], [place] [address] [place], [place] [phone] Social History Tobacco Use Types Packs/Day [...] Sign Reading Time Taken Comments Blood Pressure 100/66 11/29/2017 4:11 PM CDT Pulse 76 11/29/2017 4:11 PM CDT Temperature - - Respiratory Rate - - Oxygen Saturation - - Inhaled Oxygen Concentration - - Weight 63.5 kg (140 lb) 11/29/2017 4:11 PM CDT Height 172.1 cm (5' 7.75) 11/29/2017 4:11 PM CDT Body Mass Index 21.44 11/29/2017 4:11 PM CDT documented in this encounter Patient Instructions Patient InstructionsKandi Giordano MD - 11/29/2017 4:00 PM CDT Images from the original note were not included. Start using Nuva Ring - replace every 4 weeks. You will have some irregular bleeding for the first 3 months or so, if it continues after that, let us know and we could try doing every 3 weeks. Learning About Control: The Ring What is the ring? The ring is used to prevent . It's a soft plastic ring that you put into your vagina. It's also called the vaginal ring. The ring releases a regular dose of the hormones estrogen and progestin. These hormones prevent in three ways. They thicken the mucus in the cervix. This makes it hard for sperm to travel into the uterus. They thin the lining of the uterus, which makes it harder for a fertilized egg to attach to the uterus. The hormones also can stop the ovaries from releasing an egg each month (ovulation). The ring protects against for 1 month at a time. You wear one ring for 3 weeks in a row and then go without a ring for 1 week. During this week, you have your period. Your period may be very light. How well does it work? In the first year of use: ?? When the ring is used exactly as directed, fewer than 1 woman out of 100 has an unplanned . ?? When the ring is not used exactly as directed, 9 or more women out of 100 have an unplanned . What are the advantages of the ring? ?? The ring is more effective for preventing than barrier methods of control, such as the condom or diaphragm. ?? It prevents for up to 1 month at a time. ?? It may reduce acne, heavy bleeding and cramping, and symptoms of premenstrual syndrome. ?? The ring is convenient. You insert it only 1 time each month. You do not have to interrupt sex toprotect against . What are the disadvantages of the ring? ?? The ring doesn't protect against sexually transmitted infections (STIs), such as herpes or HIV/AIDS. If you aren't sure if your sex partner might have an STI, use a condom to protect against infection. ?? The ring may cause changes in your period. You may have little bleeding, skipped periods, or spotting. ?? It may cause mood changes, less interest in sex, or weight gain. ?? The ring contains estrogen. It may not be right for you if you have certain health problems or concerns. ?? You must remember to change the ring on schedule. Where can you learn more? 1. Go to Moment.me/Bambisa or M-DISC/Argusrary. 2. Enter H169 in the search box. Current as of: May 04, 2017 Content Version: 11.6 ?? [id number] Videostir, SyMynd. documented in this encounter Progress Notes Kandi Giordano MD - 11/29/2017 4:00 PM CDT [facility] Note CC: painful periods HPI: Jennifer King is a 22 y.o. old who presents for management of painful periods. The patient reports painful periods since at 15-16. Initially weren't bad with menarche age 16. Periods now monthly, last 7 days with first 3-4 days very heavy and painful. Has to change tampon every 2hrs, wears tampon and pad overnight together, passes clots. Has significant pain - feels like a hotknife stabbing her from the inside and vagina. Takes Aleeve with minimal relief. Some dyspareunia -feels like her partner is hitting something inside. Also some sharp pain with bowel movements during defecation. Has tried OCPs twice before - at age 18 and also this year for 6 months at a time. Stopped both times due to nausea in morning. Took at night and had significant nausea in morning. Uses co ndoms regularly with intercourse now. Seen by urology recently for recurrent UTIs, had CT IVP and was normal. Doing voids after sex and cranberry supplement and this is helping. Patient does smoke 3-4 cig/day. Has a history of headaches, sometimes migraine. Rarely has spots in her vision AFTER headache starts (never before, happens maybe once or twice per year). No family or personal history of VTE/stroke. Had STI testing done at in July, negative. LMP: Patient's last menstrual period was 11/15/2017 (exact date). Review of Systems: A 10 point review of systems was negative except as noted in HPI OBHx: MHx: Negative SHx: Past Surgical History: Procedure Laterality Date ??? SURGICAL HX - NEG Referral Management Liaison Hx: Last Pap smear: N/A; History of abnormal Pap smear: no. Menses are as above. Social: Social History Substance Use Topics ??? Smoking status: Current Every Day Smoker ??? Smokeless tobacco: Never Used Comment: 3-4 cigs per day ??? Alcohol use Yes Comment: rare use - once a month Meds: Outpatient Medications Prior to Visit Medication Sig Dispense Refill ??? ciprofloxacin (CIPRO) 500 MG tablet Take 1 Tab by mouth two times a day. 6 Tab 6 No facility-administered medications prior to visit. FamHx: History reviewed. No pertinent family history. Allergies: Allergies Allergen Reactions ??? Sulfa Antibiotics Itching Physical Examination: BP 100/66 Pulse 76 Ht 5' 7.75 (1.721 m) Wt 140 lb (63.5 kg) LMP 11/15/2017 (Exact Date) BMI 21.44 kg/m2 Estimated body mass index is 21.44 kg/(m^2) as calculated from the following: Height as of this encounter: 5' 7.75 (1.721 m). Weight as of this encounter: 140 lb (63.5 kg). GEN - NAD, comfortable; appears stated age No additional exam done, visit done entirely in counseling Assessment/Plan: Jennifer King is a 22 y.o. old with dysmenorrhea, some history consistent withendometriosis. We discussed options for management, including OCPs/patch/ring, Depo Provera, progesterone IUD, highdose progesterone, Nexplanon. Patient would like to try Nuva Ring and take continuously. No contraindications to use (has migraines but not with aura). Instructed on use. Will try using every 4 weeks, if she gets breakthrough bleeding still after 3 months, can try changing every 3 weeks. Counseled on vaccinations and would like to start HPV vaccines. 1st given today. Reviewed pap smears starting at age 21 and annual STI screening (had in Jul 2017). 30 minutes were spent face to face with this patient, with at least 50% spent on counseling and coordination of care. Kandi Giordano MD 11/29/2017 5:11 PM documented in this encounter Plan of Treatment Scheduled Referrals Name Type Priority Associated Diagnoses Order S maciej Nurse Appointment for Referral Routine Encounter for Order ed: 11/29/2017 next HPV Vaccine immunization documented as of this encounter Visit Diagnoses Diagnosis Dysmenorrhea - Primary Encounter for immunization Need for other specified prophylactic va ccination against single bacterial disease documented in this encounter Care Teams Payroll And Benefits Assistant Relationship Specialty Start Date End Date No Primary/Referring, Phy PCP - General 10/23/17 documented as of this encounter
--- OUTSIDE RECORDS SUMMARY | 2022-05-26 15:15 | XMS_ITS | Encounter Summary ---
:1995 Author Organization [facility] Address [address] [place] [address] Care Team Providers Name Role Phone No Primary/Referring, Phy Primary Care Provider Unavailable Reason for Visit Reason Comments LAB RESULTS Encounter Details Date Type Department Care Team Description 02/01/2018 Telephone [place] [facility] and Kandi Caballero MD LAB RESULTS Gynecology Physician s [address] [place], [place] [phone] (Wo rk) Social History Tobacco Use Types Packs/Day Years Used Date Smoking Tobacco: Every Day Smokeless Tobacco: Never Comments: 3-4 cigs per day Alcohol Use Standard Drinks/Week Comments Yes 0 (1 standard drink = 0.6 oz pure alcoho l) rare use - once a month Sex Assigned at Date Recorded Not on file documented as of this encounter Nursing Notes Arlin Floyd, MADELINE - 02/02/2018 4:31 PM CDT She has been notified of results. Arlin Floyd RN 02/02/2018, 4:31 PM Radha Luo RN - 02/01/2018 8:16 AM CDT Component Latest Ref Rng & Units 01/31/2018 Hemoglobin 12.0 - 16.0 g/dl 13.5 Ferritin 9 - 204 ng/ml 36 Vitamin D,25 Hydroxy 30 - 80 ng/mL 36 Pt requested a phone call with results. Called pt. Left message to call back. Radha Luo, RN documented in this encounter Plan of Treatment Not on filedocumented as of this encounter Visit Diagnoses Not on filedocumented in this encounter Care Teams Activated Sludge Attendant Relationship Specialty Start Date End Date No Primary/Referring, Phy PCP - General 10/23/17 documented as of this encounter
--- OUTSIDE RECORDS SUMMARY | 2022-05-26 15:16 | XMS_ITS | Encounter Summary ---
:1995 Author Organization [facility] Address [address] [place] [address] Care Team Providers Name Role Phone No Primary/Referring, Phy Primary Care Provider Unavailable Encounter Details Date Type Department Care Team Description 10/23/2017 Notes/Orders [facility] Yasmeen Lemus Painful urination [address] [facility] [address] [place], [place] [address] [place], [place] [phone] (Wo rk) Social History Tobacco Use Types Packs/Day Years Used Date Smoking Tobacco: Some Days Smokeless Tobacco: Never Sex Assigned at Date Recorded Not on file documented as of this encounter Progress Notes Claribel Castillo RN - 11/11/2017 2:09 PM CDT Results noted. Treated during OV with Cipro. Claribel Castillo RN 11/11/2017, 2:09 PM documented in this encounter Plan of Treatment Not on filedocumented as of this encounter Procedures Procedure Name Priority Date/Time Associated Diagnosis Comme nts URINE CULTURE Routine 10/23/2017 1:20 PM Results for this CDT procedure are i n the results section . UA MICRO IF Routine 10/23/2017 1:18 PM Painful urination Resu lts for this CDT procedure are i n the results section . UA MICRO Routine 10/23/2017 1:18 PM Results f or this CDT procedure are i n the results section . documented in this encounter Results Urine Culture (10/23/2017 1:20 PM CDT) Component Value Ref Test Analysis Performed At [facility] Range Method Time Signature Specimen Urine [facility] Description [facility] Special Unspecified [facility] Requests [facility]ORATORIES Culture 10 to 50,000 col/ml [facility] Multiple Bacterial Morphologies [facility]IES Report Status 10/25/2017 [facility] Final [facility] Specimen Anatomical Collection Method Collection Time Receive d Time (Source) Location / / Volume Laterality Urine: 10/23/2017 1:20 PM 8 8:48 CDT AM CDT Rosemarie Ugalde APRN, REGULATORY AFFAIRS PORTFOLIO LEADER LAB_1 Performing Organization Address City/State/ZIP Code Phon e Number [facility] [phone] UA MICRO (10/23/2017 1:18 PM CDT) athologist Signature RBC'S 0-3 0 - 3 /hpf [facility] WBC'S 10-20 0 - 5 /hpf [facility] Epith, Occ /hpf [facility] Squamous [facility] Bact Mod [facility] Casts 0 /lpf [facility] Specimen Anatomical Collection Method Collection Time Receive d Time (Source) Location / / Volume Laterality 10/23/2017 1:18 PM 8 1:19 CDT PM CDT Narrative [facility] - 10/23/2017 1:31 PM C DT Performed at [facility], [address] [place] [address] Jabari Stubbs MD LAB_1 Performing Organization Address City/[facility]/ZIP Code Phon e Number [facility] [phone] (ABNORMAL) UA Micro If (10/23/2017 1:18 PM CDT) [facility] Method Time Signature Urine Color Yellow [facility] Urine Clarity Clear [facility] Sp Gr 1.025 1.005 - [facility] 1.030 [facility] Leuk Sml (A) NEG [facility] Nitr Positive (A) NEG [facility] pH 6.0 4.5 - 8.0 [facility] Prot Tr (A) NEG mg/dl [facility] Gluc Negative NEG [facility] Ket Negative NEG [facility] Urob 0.2 0.2 - 1.0 [facility] EU/dl [facility] Bili Negative NEG [facility] Blood Sml (A) NEGTR [facility] Specimen Anatomical Collection Method Collection Time Receive d Time (Source) Location / / Volume Laterality 10/23/2017 1:18 PM 8 1:19 CDT PM CDT Narrative [facility] - 10/23/2017 1:30 PM C DT Performed at [facility], [address] [place] [address] Jabari Stubbs MD LAB_1 Performing Organization Address City/State/ZIP Code Phon e Number [facility] [phone] documented in this encounter Visit Diagnoses Diagnosis Painful urination Dysuria documented in this encounter Care Teams Incinerator Plant General Supervisor Relationship Specialty Start Date End Date No Primary/Referring, Phy PCP - General 10/23/17 documented as of this encounter
--- OUTSIDE RECORDS SUMMARY | 2022-05-26 15:16 | XMS_ITS | Encounter Summary ---
:1995 Author Organization [facility] Address [address], [place] [address] Care Team Providers Name Role Phone No Primary/Referring, Phy Primary Care Provider Unavailable Reason for Referral Consult/Transfer Care (Routine) - Closed Specialty Diagnoses / Procedures Referred By Contact Refer red To Contact Diagnoses Recurrent UTI Painful menstrual periods Juan Franco MD [address] [place] [address] Referral ID Status Reason Start Date Expiration Date Visits Requ ested Visits Authorized [id number] Closed 11/10/2017 02/09/2019 1 1 Scheduling Instructions Your provider has recommended an appoint ment with [facility] CONTINUOUS DRIER OPERATOR. You may call [phone] to schedule your appointmen t. If you prefer, a cross tie tram loader will contact you within the next 3 business days to a ssist you in setting up this appointment. We suggest you call your health insurance alan about your coverage and benefits for this appointment. Procedure/Equipment (Routine) - Incomplete Specialty Diagnoses / Procedures Referred By Contact Refer red To Contact Diagnoses Recurrent UTI Painful menstrual periods Juan Franco MD Procedures CT IVP [address] [place] [address] Referral ID Status Reason Start Date Expiration Date Visits V isits Requested Authorized [id number] Incomplete 11/10/2017 02/09/2019 1 1 Reason for Visit Reason Comments Consult, New Patient UTI Encounter Details Date Type Department Care Team Description 11/10/2017 Office Visit [facility] Sree Franco UTI (Primary Dx); [facility] Juan Lilly MD Painful menstrual periods [address] [place] [address] [place] [phone] Social History Tobacco Use Types Packs/Day Years Used Date Smoking Tobacco: Some Days Smokeless Tobacco: Never Alcohol Use Standard Drinks/Week Comments No 0 (1 standard drink = 0.6 oz pure alcoho l) Sex Assigned at Date Recorded Not on file documented as of this encounter Last Filed Vital Signs Vital Sign Reading Time Taken Comments Blood Pressure 115/63 11/10/2017 8:34 AM CDT Pulse 77 11/10/2017 8:34 AM CDT Temperature - - Respiratory Rate - - Oxygen Saturation - - Inhaled Oxygen Concentration - - Weight 64 kg (141 lb) 11/10/2017 8:34 AM CDT Height 172.7 cm (5' 8) 11/10/2017 8:34 AM CDT Body Mass Index 21.44 11/10/2017 8:34 AM CDT documented in this encounter Patient Instructions Patient InstructionsAaronWandy colón Brennan, PROGRAM MANAGER RN - 11/10/2017 8:15 AM CDT Obtain a CT scan Stay hydrated, add a OTC cranberry supplement Return after scan for possible cystoscopy. [employer]ICAN FOOD MAKER HAND consult for painful periods. Juan Franco MD 11/10/2017, 8:55 AM Your follow up appointment will be scheduled with one of the urology care team members. This may be one of our physician assistants or nurse practitioners. They are always in direct communication with your physician who remains responsible for your urologic care at [facility]. For Xray, CT test, and Ultrasound results, [...] you! Get Cost of Care Estimates - [phone] The health insurance marketplace has changed dramatically in the last few years. Our cost of care service will provide estimates over the phone for treatments or procedures billed through [facility]. To receive a cost estimate, simply call [phone] during regular business hours. If you have insurance coverage, you will need to verify your policy of coverage with your health planby calling the number located on the back of your insurance card and talking to member services. documented in this encounter Progress Notes Juan Franco MD - 11/10/2017 8:15 AM CDT Urology New Patient Note Date of Service: 11/10/2017 HPI: Jennifer Kign is a 22 y.o. old female is seen for urologic evaluation and treatment of recurrent urinary tract infections. Pt is a 22 y.o. year old female [...] does have a history of irregular menses. The patient has a current medication list which includes the following prescription(s): etonogestrel-ethinyl estradiol. The patient's past medical, social, allergy and family history were reviewed and available within the electronic medical record. Patient works as a certified nurse ex assistant/program director. Review of systems: 10 point review of systems reviewed and negative except as per history of presentillness. ? Physical Exam: BP 115/63 Pulse 77 Ht 5' 8 (1.727 m) Wt 141 lb (64 kg) LMP 10/21/2017 BMI 21.44 kg/m2 General/Psych: Alert and Oriented to person, place, and time. Pleasant mannerism and in no apparent distress. Answers questions appropriately. Normal affect HEENT: Atraumatic, normocephalic Skin: Warm and dry. No active rashes, lesions, infections noted. Lungs: Easily breathing on room air. Good respiratory excursion. No obvious wheezes, rales, or rhonchi. Clear to ausculation CV: Heart rate RRR, No pitting edema noted on lower extremities. No JVD noted. GI: flat, Soft, not distended, nontender. No obvious abdominal masses, pulsations, nor HSM. No guarding or rebound. Musculoskeletal: No obvious spinal deformities, no CVA tenderness noted with percussion. Neuro: Cranial nerves II-XII grossly intact. No neurologic defects noted. Recent microscopic urinalysis history: RBC'S (/hpf) Date Value 11/10/2017 0-3 10/23/2017 0-3 WBC'S (/hpf) Date Value 11/10/2017 0 10/23/2017 10-20 Assessment: Encounter Diagnoses Name Primary? Recurrent UTI Yes ??? Painful menstrual periods Recurrent urinary tract infections. Recommend CT scan to evaluate for abnormal upper tract anatomy.-Recommend good hydration and eckz-uxe-ylccwjo cranberry supplementation. Follow up afterwards for possible cystoscopy. We will have her evaluated by gynecology for painful menstruation,- Juan Franco MD documented in this encounter Plan of Treatment Scheduled Referrals Name Type Priority Associated Diagnoses Order S chedule Ob-Electronic Coils Supervisor Consult Referral Routine Recurrent UTI Ordered: 11/10/2017 Painful menstrual periods documented as of this encounter Procedures Procedure Name Priority Date/Time Associated Diagnosis Comme nts UA WITH MICRO Waiting 11/10/2017 8:03 AM Recurrent UTI Results for this CDT procedure are i n the results section . documented in this encounter Results CT IVP (11/19/2017 4:36 PM CDT) Anatomical Region Laterality Modality Abdomen, Pelvis Computed Tomography Specimen (Source) Anatomical Collection Method Collection Time Re ceived Time Location / / Volume Laterality 11/19/2017 4:36 PM CDT Narrative 11/19/2017 6:02 PM CDT SPECIALTY CTR II CT ABDOMEN AND PELVIS [...] ureteral anatomy. Juan Franco MD RAD CT (ABNORMAL) UA with Micro (11/10/2017 8:03 AM CDT) [facility] gist Method Time Signature Urine Color Yellow [facility] Urine Clarity Clear [facility] Sp Gr 1.025 1.005 - [facility] 1.030 [facility] Leuk Negative NEG [facility] Nitr Negative NEG [facility] pH 6.0 4.5 - 8.0 [facility] Prot Negative NEG mg/dl [facility] Gluc Negative NEG [facility] Ket Tr (A) NEG [facility] Urob 0.2 0.2 - 1.0 [facility] EU/dl [facility] Bili Negative NEG [facility] Blood Neg/Tr NEGTR [facility] RBC'S 0-3 0 - 3 [facility] /hpf LAB[facility] WBC'S 0 0 - 5 [facility] /hpf [facility] Epith, Occ /hpf [facility] Squamous [facility] Bact 0 [facility] Casts 0 /lpf [facility] Specimen Anatomical Collection Method Collection Time Receive d Time (Source) Location / / Volume Laterality 11/10/2017 8:03 AM 8 8:09 CDT AM CDT Narrative [facility] - 11/10/2017 8:18 AM C DT Performed at [address] [facility], [address] [place] [id number] Juan Franco MD LAB_1 Performing Organization Address City/State/ZIP Code Phon e Number [facility] [phone] documented in this encounter Visit Diagnoses Diagnosis Recurrent UTI - Primary Urinary tract infection, site not specif ied Painful menstrual periods Dysmenorrhea Screening for nephropathy - Primary Recurrent UTI Urinary tract infection, site not specif ied Painful menstrual periods Dysmenorrhea documented in this encounter Care Teams Acetylene Burner Relationship Specialty Start Date End Date No Primary/Referring, Phy PCP - General 10/23/17 documented as of this encounter
--- OUTSIDE RECORDS SUMMARY | 2022-05-26 15:16 | XMS_ITS | Encounter Summary ---
:1995 Author Organization [facility] Address [address], [place] [address] Care Team Providers Name Role Phone No Primary/Referring, Phy Primary Care Provider Unavailable Reason for Visit Reason Comments Dysuria Encounter Details Date Type Department Care Team Description 10/23/2017 Office Visit [facility] Rosemarie Haas Uri nary tract infection with hematuria, site unspecified (Primary Dx); Josue BRODERICK CNP Painful urination [id number] [place], [place] [phone] [id number] Social History Tobacco Use Types Packs/Day Years Used Date Smoking Tobacco: Some Days Smokeless Tobacco: Never Sex Assigned at Date Recorded Not on file documented as of this encounter Last Filed Vital Signs Vital Sign Reading Time Taken Comments Blood Pressure 112/61 10/23/2017 1:50 PM CDT Pulse 105 10/23/2017 1:50 PM CDT Temperature 36.7 ??C (98.1 ??F) 10/23/2017 1:50 PM CDT Respiratory Rate 16 10/23/2017 1:50 PM CDT Oxygen Saturation - - Inhaled Oxygen Concentration - - Weight 64 kg (141 lb) 10/23/2017 1:50 PM CDT Height - - Body Mass Index - - documented in this encounter Patient Instructions Patient InstructionsRosemarie Ugalde APRN, CNP - 10/23/2017 1:00 PM CDT Images from the original note were not included. Today you were seen for a UTI Take all medications as prescribed Take Tylenol or Ibuprofen for pain (unless you have been instructed not to take either one) Drink plenty of liquids and rest Follow up with your primary care provider or return to the urgent care if your symptoms do not improve or get worse. Urinary Tract Infection in Women: Care Instructions Your Care Instructions A urinary tract infection, or UTI, is a general term for an infection anywhere between the kidneys and the urethra (where urine comes out). Most UTIs are bladder infections. They often cause pain or burning when you urinate. UTIs are caused by bacteria and can be cured with antibiotics. Be sure to complete your treatment sothat the infection goes away. Follow-up care is a han part of your treatment and safety. Be sure to make and go to all appointments, and call your doctor if you are having problems. It's also a good idea to know your test results and keep a list of the medicines you take. How can you care for yourself at home? ?? Take your antibiotics as directed. Do not stop taking them just because you feel better. You needto take the full course of antibiotics. ?? Drink extra water and other fluids for the next day or two. This may help wash out the bacteria that are causing the infection. (If you have kidney, heart, or liver disease and have to limit fluids,talk with your doctor before you increase your fluid intake.) ?? Avoid drinks that are carbonated or have caffeine. They can irritate the bladder. ?? Urinate often. Try to empty your bladder each time. ?? To relieve pain, take a hot bath or lay a heating pad set on low over your lower belly or genitalarea. Never go to sleep with a heating pad in place. To prevent UTIs ?? Drink plenty of water each day. This helps you urinate often, which clears bacteria from your system. (If you have kidney, heart, or liver disease and have to limit fluids, talk with your doctor before you increase your fluid intake.) ?? Urinate when you need to. ?? Urinate right after you have sex. ?? Change sanitary pads often. ?? Avoid douches, bubble baths, feminine hygiene sprays, and other feminine hygiene products that have deodorants. ?? After going to the bathroom, wipe from front to back. When should you call for help? Call your doctor now or seek immediate medical care if: ? ?? Symptoms such as fever, chills, nausea, or vomiting get worse or appear for the first time. ? ?? You have new pain in your back just below your rib cage. This is called flank pain. ? ?? There is new blood or pus in your urine. ? ?? You have any problems with your antibiotic medicine. ?Watch closely for changes in your health, and be sure to contact your doctor if: ? ?? You are not getting better after taking an antibiotic for 2 days. ? ?? Your symptoms go away but then come back. Where can you learn more? 1. Go to [email or web address] or [employer]. 2. Enter K848 in the search box. Current as of: October 23, 2016 Content Version: 11.6 ?? [id number] Sapho. documented in this encounter Progress Notes Rosemarie Ugalde APRN, CNP - 10/23/2017 1:00 PM CDT Historical: Chief Complaint Patient presents with ??? Dysuria Urinary Tract Infection How long have you had these symptoms: 12 hour(s) Do you have any urinary frequency? YES Do you have any burning upon urination? YES Do you have a fever? No Do you have any back pain? No Do you have any blood in the urine? YES Have you had a recent UTI in the last 6 months? YES Do you have a history of kidney stones? No Are there any treatments you have tried? YES, AZO for pain control Subjective Jennifer King is a 22 y.o. old female here with dysuria that began this morning. She has treated hersymptoms at home with AZO, which has not helped. PMH Previous UTI YES. More than 4 UTI???s in a year Yes History of Renal Disease No Diabetes No Have you been hospitalized or had a surgical procedure within the past 2 weeks: NO ROS : NO, LMP: 10/21/17. Medications: Current Outpatient Prescriptions Medication Sig Dispense Refill ??? cephalexin (KEFLEX) 500 MG capsule Take 1 Cap by mouth two times a day for 7 days. 14 Cap 0 No current facility-administered medications for this visit. Allergies: Review of patient's allergies indicates no known allergies. Objective BP 112/61 Pulse (!) 105 Temp 98.1 ??F (36.7 ??C) (Tympanic) Resp 16 Wt 141 lb (64 kg) LMP 10/21/2017 General Apearance: well developed, well nourished, in no acute distress and appears stated age Abdomen: Inpsection flat Auscultation normal bowel sounds Tenderness none Masses none Organomegaly none CVA tenderness None present Assessment ICD-10-CM 1. Urinary tract infection with hematuria, site unspecified N39.0 Add On Lab Orders R31.9 cephalexin (KEFLEX) 500 MG capsule 2. Painful urination R30.9 UA Micro If Plan UA positive for infection and hematuria today. Dx and tx plan discussed. Start Keflex today as prescribed. Urine culture pending If symptoms return follow up with a urologist See patient education and prescribed medication. Potential side effects reviewed. Rosemarie Ugalde APRN, ANDREY documented in this encounter Nursing Notes Chelsie Wilson LPN - 10/23/2017 1:00 PM CDT Chelsie Wilson LPN documented in this encounter Plan of Treatment Not on filedocumented as of this encounter Results (ABNORMAL) UA Micro If (10/23/2017 1:18 PM CDT) [facility] Method Time Signature Urine Color Yellow [...] 10/23/2017 1:30 PM C DT Performed at [facility], [address] [place] [address] Jabari Stubbs MD LAB_1 Performing Organization Address City/State/ZIP Code Phon e Number [facility] [phone] documented in this encounter Visit Diagnoses Diagnosis Urinary tract infection with hematuria, site unspecified - Primary Painful urination Dysuria Painful urination Dysuria documented in this encounter Care Teams Information Services Assistant Relationship Specialty Start Date End Date No Primary/Referring, Phy PCP - General 10/23/17 documented as of this encounter
[2022-05-26 18:50] LABS: Chlamydia DNA Amplified* NOT DETECTED (No Detected); GC DNA Amplified* NOT DETECTED (No Detected)
== END 2022-05-26 15:13 | disposition home or self-care (01) ==
LOC: NFLDREF 15:13
PROVIDERS: Visit Provider Obstetrics & Gynecology
DX: Z11.3 Encounter for screening for infections with a predominantly sexual mode of transmission (principal); N89.8 Other specified noninflammatory disorders of vagina
CPT/HCPCS: 87491; 87591

== ENCOUNTER 2022-09-22 11:55 | Emergency (ER) | payer OTHER, SELFPAY ==
[2022-09-22 12:11] VITALS: BP 102/69; PULSE 88; RESP 16; TEMP 37.3; O2SAT 96; BMI 25.8
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
[2022-09-22 13:25] VITALS: BP 116/80; PULSE 78; RESP 16; O2SAT 97
[2022-09-22 14:05] VITALS: BP 125/76; PULSE 77; RESP 18; O2SAT 99
== END 2022-09-22 14:18 | disposition home or self-care (01) ==
PROVIDERS: Emergency Provider Family Medicine; PCP Family Medicine
DX: M25.512 Pain in left shoulder (principal); S16.1XXA Strain of muscle, fascia and tendon at neck level, initial encounter; V40.0XXA Car driver injured in collision with pedestrian or animal in nontraffic accident, initial encounter
CPT/HCPCS: 72125; 73030; 99284; 99291

== ENCOUNTER 2023-03-10 14:07 | Outpatient (CLI) | payer OTHER, SELFPAY ==
[2023-03-10 19:07] LABS: Chlamydia DNA Amplified* NOT DETECTED (No Detected); GC DNA Amplified* NOT DETECTED (No Detected)
== END 2023-03-10 14:08 | disposition home or self-care (01) ==
PROVIDERS: PCP Family Medicine; Visit Provider Registered Nurse
DX: R30.0 Dysuria (principal); Z11.3 Encounter for screening for infections with a predominantly sexual mode of transmission
CPT/HCPCS: 87086; 87491; 87591

== ENCOUNTER 2023-05-12 09:41 | Outpatient (CLI) | payer OTHER, SELFPAY | END 2023-05-12 09:42 | disposition home or self-care (01) | PROVIDERS: PCP Family Medicine; Visit Provider Physician Assistant | DX: R30.0 Dysuria (principal) | CPT/HCPCS: 87086 ==

== ENCOUNTER 2023-05-29 12:09 | Outpatient (REF) | payer OTHER, SELFPAY | END 2023-05-29 12:10 | disposition home or self-care (01) | LOC: NFLDREF 12:09 | PROVIDERS: PCP Family Medicine; Referring Provider Family Medicine; Visit Provider Nurse Practitioner Family | DX: R30.0 Dysuria (principal); N39.0 Urinary tract infection, site not specified; B37.31 Acute candidiasis of vulva and vagina; N30.01 Acute cystitis with hematuria | CPT/HCPCS: 87086 ==

== ENCOUNTER 2023-06-18 11:29 | Outpatient (CLI) | payer OTHER, SELFPAY ==
[2023-06-18 19:10] LABS: Chlamydia DNA Amplified* NOT DETECTED (No Detected); GC DNA Amplified* NOT DETECTED (No Detected)
== END 2023-06-18 11:30 | disposition home or self-care (01) ==
PROVIDERS: PCP Family Medicine; Visit Provider Registered Nurse
DX: Z11.3 Encounter for screening for infections with a predominantly sexual mode of transmission (principal)
CPT/HCPCS: 87086; 87491; 87591

== ENCOUNTER 2023-06-21 15:12 | Emergency (ER) | payer OTHER, SELFPAY ==
[2023-06-21 15:38] VITALS: BP 121/73; PULSE 84; RESP 16; TEMP 36.5; O2SAT 99; BMI 22.8
--- NOTE | 2023-06-21 15:58 | ED_ITS ---
HPI - Female Genitourinary General Time Seen by Provider: 15:58 Date Seen: 06/21/23 Chief complaint: Urogenital Problems, Female Stated complaint: Bladder pain Time Seen by Provider: 06/21/23 15:53 Source: patient, RN notes reviewed and old records reviewed Mode of arrival: ambulatory Limitations: no limitations History of Present Illness HPI Narrative: This 28-year-old female is coming into the ER after talking to the triage nurse and [facility]. This patient has had a 4 year history of urinary issues, does have underlying history of UTIs. This morning she noted blood in her urine, significant painful urination and urgency. She was at work in just felt like she needed to be on the toilet the whole time. She did not note any fevers. No abdominal pain but notes that she feels pain in her bladder with these symptoms, can feel her bladder. This is not necessarily new. She has been evaluated by [place] [facility] about 2-3 years ago, believes she may have had a CT and was told her kidneys were normal. There is a history of UTIs but she has had negative urine cultures on June 18 of this year here, 05/29/2023, 05/12/2023 and 03/10/2023 in our records. She noted clots with her urination today. She does have an IUD, states she has had a history of heavy and painful menses, had a Mirena IUD put in about 3 years ago but notice significant increased cramping with that. She had it switched to a smaller hormonal IUD about 3 months ago. She states when she has been in [place] in the ER before that they had done an ultrasound and her ovaries looked like they may be PCOS per her report. She recently did see [facility] on June 18, that is where the urinalysis and culture was done, she did have a negative gonorrhea and chlamydia screen done at that visit as well. They have referral into Urology when her urine culture was negative. She shows me a picture where there was terminal clotting with wiping, does not think that this was vaginal. Her urinalysis from June 18 did show hematuria. Her symptoms were worse this morning. She does not think she has ever had a cystoscopy done. No nausea vomiting, no change in appetite, states she has baseline constipation but this is unchanged. MD elicited complaint: dysuria and UTI Related Data Home Medications Medication Instructions Recorded Confirmed fluoxetine 20 mg capsule 20 mg PO QDAY 06/04/23 06/18/23 trazodone 100 mg tablet 100 mg PO QDAY 06/04/23 06/18/23 Previous Rx's Medication Instructions Recorded lorazepam 1 mg tablet 0.5 - 1 mg (0.5 - 1 x 1 mg) PO BID 08/25/22 PRN anxiety #10 tabs fluconazole 150 mg tablet 150 mg PO Q3D 2 doses #2 tabs 06/18/23 phenazopyridine 200 mg tablet 200 mg PO TID PRN pain #12 tabs 06/21/23 Allergies Allergy/AdvReac Type Severity Reaction Status Date / Time Sulfa (Sulfonamide Allergy Mild Hives Verified 06/18/23 13:49 Antibiotics) Review of Systems Narrative: History as per HPI. [facility] Medical History Screen for STD (sexually transmitted disease) ?Z11.3 - Encounter for screening for infections with a predominantly sexual mode of transmission (ICD-10) Social History Smoking Status: Current every day smoker What tobacco products do you use: cigarettes Smoking packs per day: 0.5 Smoking cigarettes per day: 10.0 Do you use any of these nicotine containing products: None Second hand tobacco smoke exposure: No How often do you have a drink containing alcohol: 2-4 times a month How many standard drinks containing alcohol do you have on a typical day: 3 or 4 AUDIT-C Alcohol total score: 3 Non-prescribed substance use: denies use Little interest or pleasure in doing things: more than half the days Feeling down, depressed, or hopeless: several days service: No Exam Const: Vital Signs, click to edit/add: Vital Signs - 24 hr 06/21/23 15:38 Temperature 97.7 F Pulse Rate [Pulse Oximeter] 84 Respiratory Rate 16 Blood Pressure [Ri ght Upper Arm] 121/73 Pulse Oximetry 99 Oxygen Delivery Me thod Room Air Patient is alert, interactive, no apparent distress, sitting in the exam chair in room 4. Sclera clear, able speak in complete sentences. Face is symmetric, no rash. Lungs are clear come good air entry, no wheezing or crackles. No CVA tenderness. CV regular rate and rhythm, no murmur, normal S1-S2, no S3 or S4. Chair was reclined, her abdomen is soft, flat, nondistended, no organomegaly, nontender, no rebound or guarding. Documenting provider has reviewed patient's vital signs: yes Course Course ED Course: Reviewed with patient considerations, her abdominal exam is completely benign. She does have an IUD and does have consistent spotting per report. She does seem to think that the blood clots are coming from urinary system however. I do think we recollect urinalysis come insure no UTI. We will check basic labs with a CBC and basic metabolic panel, she does not think those have been checked since she was last evaluated at [place] 2-3 years ago. If all of this is normal, do think she needs to see Urology. She may need a repeat [address] renal imaging and possible cystoscopy, we did discuss other possibilities of interstitial cystitis and other things that cause urinary issues. Would not necessarily expect some of these to cause hematuria but do wonder if her issues are confounded by spotting. She is exhibiting no symptoms of fevers. No other associated GI symptoms. Reevaluation(s) Time of Reevaluation #1: 18:20 Reevaluation #1: Reviewed normal lab results outside of mild hematuria on the urinalysis. We will culture but do not believe we should treat given her recent history of negative urine cultures. She has tried peridium in the past, has maybe helped but would like to try it tonight. She understands that she needs to see Urology. I do not think that any imaging is needed emergently at this time. We did discuss return if she has increased abdominal pain, any associated vomiting or fevers with it. I would also ask that she tries to decipher if there is any possibility that there could be vaginal contaminant of the urine with vaginal bleeding. Vital Signs Vital signs: Initial Vital Signs Temperature 97.7 F 06/21/23 15:38 Temperature Source Temporal Artery Scan 06/21/23 15:38 Pulse Rate 84 06/21/23 15:38 Pulse Rhythm Regular 06/21/23 15:38 Respiratory Rate 16 06/21/23 15:38 Blood Pressure 121/73 06/21/23 15:38 Blood Pressure Mean 89 06/21/23 15:38 Blood Pressure Position Sitting 06/21/23 15:38 Pulse Oximetry 99 06/21/23 15:38 Oxygen Delivery Method Room Air 06/21/23 15:38 Vital Signs Temperature 97.7 F 06/21/23 15:38 Pulse Rate 84 06/21/23 15:38 Respiratory Rate 16 06/21/23 15:38 Blood Pressure 121/73 06/21/23 15:38 Pulse Oximetry 99 06/21/23 15:38 Oxygen Delivery Method Room Air 06/21/23 15:38 Temperature 97.7 F 06/21/23 15:38 Pulse Rate 84 06/21/23 15:38 Respiratory Rate 16 06/21/23 15:38 Blood Pressure 121/73 06/21/23 15:38 Pulse Oximetry 99 06/21/23 15:38 Oxygen Delivery Method Room Air 06/21/23 15:38 MDM - Female Genitourinary Lab Data Attestation: I reviewed the patient's lab results. Labs: Lab Results 06/21/23 06/21/23 Range/Units 15:28 16:45 WBC 8.88 (4.50-11.00) K/uL RBC 4.57 (4.00-5.20) m/uL Hgb 13.9 (12.0-16.0) gm/dL Hct 42.3 (33.0-51.0) % MCV 93 (80-100) fL MCH 30 (26-34) pg MCHC 33 (32-36) gm/dL RDW Coeff of Viktor 13.4 (11.5-15.5) % Plt Count 257 (140-440) K/uL Neut % (Auto) 71.0 (42.0-72.0) % Lymph % (Auto) 20.7 (20-44) % [place] % (Auto) 6.9 (0.0-11.0) % Eos % (Auto) 0.7 (0.0-7.0) % Baso % (Auto) 0.6 (0.0-3.0) % Neut # (Auto) 6.31 (1.7-7.0) K/uL Lymph # (Auto) 1.84 (0.90-2.90) K/uL [place] # (Auto) 0.60 (0.00-0.90) K/UL Eos # (Auto) 0.06 (0.00-0.50) K/uL Baso # (Auto) 0.05 (0.00-0.30) K/uL Abs Immat Gran (auto) 0.01 (0.00-0.30) K/uL Imm/Tot Granulo (auto) 0.1 % Sodium 137 (135-149) mmol/L Potassium 4.1 (3.6-5.1) mmol/L Chloride 99 (96-114) mmol/L Carbon Dioxide 28 (20-32) mmol/L Anion Gap 10 (7-15) mEq/L BUN 9 (5-24) mg/dL Creatinine 0.5 (0.5-1.5) mg/dL Estimated Creat Clear 172.00 Estimated GFR 133 ml/min Glucose 92 (60-115) mg/dL Calcium 9.6 (8.4-10.6) mg/dL Urine Color Dark yellow (Yellow) Urine Appearance Slightly Cloudy A (Clear) Urine pH 8.5 (5.0-8.5) Ur Specific [place] 1.020 (1.000-1.030) Urine Protein Trace A (Negative) Urine Glucose (UA) Negative (Negative) Urine Ketones Negative (Negative) Urine Blood Trace-intact A (Negative) Urine Nitrite Negative (Negative) Urine Bilirubin Negative (Negative) Urine Urobilinogen 0.2 (0.2-1.0) Ur Leukocyte Esterase Negative (Negative) Urine RBC 10-25 A (0-2) Urine WBC 5-10 A (0-5) Ur Squamous Epith Cells None (None-Few) Amorphous Sediment Few A (None) Urine Bacteria Few A (None) Critical Care Time Critical Care Time Critical Care Time: No Discharge Plan Discharge Clinical Impression: Dysuria Hematuria Qualifiers: Hematuria type: unspecified type Qualified Code(s): R31.9 - Hematuria, unspecified Patient Disposition: Home, Self-Care Condition: Stable Instructions: Hematuria (ED), Dysuria (ED) Additional Instructions: Can try pyrdium and see if that does help any of your symptoms. You ultimately need to see Urology, may need renal and urinary imaging done, consideration for cystoscopy. Ultimately defer to the urologist recommendations. If you are developing increasing abdominal pain, have any associated fever or vomiting with it, are developing increasing blood in the urine, do recommend re-evaluation in the interim. Activity Level: Activity as Tolerated Prescriptions: New phenazopyridine 200 mg tablet 200 mg PO TID PRN (Reason: pain) Qty: 12 0RF No Action lorazepam 1 mg tablet 0.5 - 1 mg PO BID PRN (Reason: anxiety) Qty: 10 0RF trazodone 100 mg tablet 100 mg PO QDAY fluoxetine 20 mg capsule 20 mg PO QDAY fluconazole 150 mg tablet 150 mg PO Q3D Qty: 2 0RF Follow Up/Referrals: Damion Gonzalez MD [Primary Care Provider] - Stand Alone Forms: [facility] Info Instructions
--- OUTSIDE RECORDS SUMMARY | 2023-06-21 16:25 | XMS_ITS | Encounter Summary ---
Author Name Unknown Organization [facility] Address [address] [place] [address] Care Team Providers Care Renewals Specialist Name Role Phone Oksana Haque MD Primary Care Provider [phone] Encounter Details Date Type Department Care Team Description 01/14/2018 Correspondence None No Primary/Referring, Phy NEW PATIENT HISTORY Social History Tobacco Use Types Packs/Day Years Used Date Smoking Tobacco: Every Day Smokeless Tobacco: Never Comments:3-4 cigs per day Alcohol Use Standard Drinks/Week Comments Yes 0 (1 standard drink = 0.6 oz pur e alcohol) rare use - once a month Sex and Gender Information Value Date Recorded Sex Assigned at Not on file Gender Identity Not on file Sexual Orientation Not on file documented as of this encounter Plan of Treatment Not on file documented as of this encounter Visit Diagnoses Not on filedocumented in this encounter Care Teams Renewals Specialist Relationship Specialty Start Date End Date Oksana Haque MD [address] [place] [address] PCP - General Family Practice 02/07/21 documented as of this encounter
--- OUTSIDE RECORDS SUMMARY | 2023-06-21 16:25 | XMS_ITS | Clinical Summary ---
Author Name Unknown Organization [facility] Address [address] [place] [address] Care Team Providers Care Automobile Locator Name Role Phone Oksana Haque MD Primary Care Provider [phone] Source Comments You are receiving this document as you are listed as the primary care provider,follow-up provider, or the patient has been referred to you for consultation.This is in compliance with the Medicare and[facility] Hospitalcaid EHR Incentive Program,which states Providers who transition their patient to another setting of careor provider of care or refers their patient to another provider of care shouldprovide summary care record for each transition of care or referral. [facility] Allergies Active Allergy Reactions Criticality Noted Date Comments Sulfa Antibiotics Itching 11/10/2017 Sulfa Antibiotics Hives High 12/24/2020 Medications Medication Sig Dispensed Refills Start Date End Date Status levonorgestrel (MIRENA) 20 MCG/24HR IUDIndications:Enco unter for IUD insertion 1 Each by Intrauterine route continuous. 0 01/31/2018 Active hydrOXYzine HCl (ATARAX) 25 MG tablet Take 1-2 Tablets by mouth three times a day as needed for Anxiety. 30 Tablet 3 12/24/2020 Active traZODone (DESYREL) 50 MG tabletIndications:D epression with anxiety (HRC) Take 1-2 Tablets by mouth daily at bedtime for 60 days. 60 Tablet 1 02/24/2021 Active FLUoxetine (PROZAC) 10 MG capsuleIndications: Depression with anxiety (HRC) Take 3 Capsules by mouth daily for 60 days. In 1 week increase to 20 mg daily 90 Capsule 3 02/24/2021 Active levonorgestrel (MIRENA) 20 MCG/24HR IUDIndications:Enco unter for insertion of intrauterine contraceptive device 1 Each by Intrauterine route continuous. 0 05/14/2021 Active LORazepam (ATIVAN) 1 MG tablet TAKE 1 TABLET BY MOUTH ONCE FOR 1 DOSE. 0 05/01/2021 Active ketorolac (TORADOL) 10 MG tablet Take 1 Tablet by mouth every 6 hours as needed for Pain. 20 Tablet 2 06/30/2021 Active Active Problems Problem Noted Date Diagnosed Date IUD (intrauterine device) in place 05/14/2021 Overview: Mirena IUD inserted 05/14/2021 --Lot # [id number] Immunizations Name Administration Dates Next Due 9vHPV (Gardasil 9) 10/24/2019,11/29/2017, 018 DTaP 1997 HepA Ped/Adol (1-18 yrs) 11/02/2012 HepB Adult (Engerix-B, 20+ y rs, 3 dose series) 02/20/2019,11/16/2018 HepB, Unspecified Formulation 1997 Hib, Unspecified Formulation 1997 Influenza IIV4 (Quadrivalent) 0.5mL ([id number]) 03/15,04/10/2019 MMR 12/29/2018 Pfizer Monovalent 12+ Purple Top 04/10/2021,07/15,07/11/2020 Polio, Unspecified Formulation 1997 Tdap 11/02/2012,11/02/2012 Varicella 02/20/2019,12/29/2018 Family History Relation Name Status Comments Father [...] Used Date Smoking Tobacco: Every Day Cigarettes Smokeless Tobacco: Never Comments:5 per day Alcohol Use Standard Drinks/Week Comments Yes 0 (1 standard drink = 0.6 oz pur e alcohol) social Sex and Gender Information Value Date Recorded Sex Assigned at Not on file Gender Identity Not on file Sexual Orientation Not on file Last Filed Vital Signs Vital Sign Reading Time Taken Comments Blood Pressure 120/87 06/30/2021 2:05 PM TRAIN OPERATIONS MANAGER Pulse 94 06/30/2021 2:05 PM TRAIN OPERATIONS MANAGER Temperature 36.9 ??C (98.4 ??F) 05/22/2018 2:11 PM CS T Respiratory Rate 16 10/23/2017 1:50 PM CDT Oxygen Saturation 99% 05/22/2018 2:11 PM TRAIN OPERATIONS MANAGER Inhaled Oxygen Concentration - - Weight 77 kg (169 lb 12.8 oz) 06/30/2021 2:00 PM TRAIN OPERATIONS MANAGER Height 173.4 cm (5' 8.25) 04/16/2021 2:09 PM CD T Body Mass Index 25.63 04/16/2021 2:09 PM CDT Plan of Treatment Health Maintenance Due Date Last Done Comments Hep C Screening (Preventive Services) 1997 IPV (Polio) (2 of 3 - 4-dose series) 1997 1997 Pneumococcal (1 - PCV) 2003 HepA (2 of 2 - 2-dose series) 05/05/2013 11/02/2012 HIV Screening (Preventive Services) 2013 Adult Preventive Visit 2015 HPV Vaccine (3 - 3-dose series) 01/16/2020 10/24/2019, 11/29/2017, 11/29/2017 DTaP/Tdap/Td (3 - Tdap) 11/02/2022 11/03/19 13, 11/02/2012, 1997 COVID-19 Vaccine ( season) 2023 04/10/2021, 08/01/2020, 07/11/2020 Influenza (#1) 2023 04/10/2021, 04/10/2019 Cervical Cancer Screening 12/25/2023 12/24/2020 Zoster/Shingles (1 of 2) 2047 Hib Aged Out 1997 No longer eligi ble based on patient's age to complete this topic HepB Completed 02/20/2019, 11/16/2018, 1997 Varicella Completed 02/20/2019, 12/29/2018 Chlamydia Discontinued 04/16/2021, 03/15/2017 (Completed) MCV4 Aged Out No longer eligi ble based on patient's age to complete this topic Care Teams Automobile Locator Relationship Specialty Start Date End Date Oksana Haque MD [address] [place], [place] [address] PCP - General Family Practice 02/07/21
[2023-06-21 17:03] LABS: Chloride* 99 mmol/L (96-114); Potassium* 4.1 mmol/L (3.6-5.1); Sodium* 137 mmol/L (135-149)
[2023-06-21 17:05] LABS: Creatinine* 0.5 mg/dL (0.5-1.5); Estimated Glomerular Filt Rate 133 ml/min
[2023-06-21 17:06] LABS: Anion Gap 10 mEq/L (7-15); Blood Urea Nitrogen* 9 mg/dL (5-24); Calcium* 9.6 mg/dL (8.4-10.6); Carbon Dioxide* 28 mmol/L (20-32); Glucose* 92 mg/dL (60-115)
[2023-06-21 17:14] LABS: Basophils Absolute Auto 0.05 K/uL (0.00-0.30); Basophils Percent Auto 0.6 % (0.0-3.0); Eosinophils Absolute Auto 0.06 K/uL (0.00-0.50); Eosinophils Percent Auto 0.7 % (0.0-7.0); Hematocrit 42.3 % (33.0-51.0); Hemoglobin* 13.9 gm/dL (12.0-16.0); Immature Granulocytes Abs Auto 0.01 K/uL (0.00-0.30); Immature Granulocytes Pct Auto 0.1 %; Lymphocytes Absolute Auto 1.84 K/uL (0.90-2.90); Lymphocytes Percent Auto 20.7 % (20-44); Mean Corpuscular HGB Conc 33 gm/dL (32-36); Mean Corpuscular Hemoglobin 30 pg (26-34); Mean Corpuscular Volume 93 fL (80-100); Monocytes Percent Auto 6.9 % (0.0-11.0); Neutrophils Absolute Auto 6.31 K/uL (1.7-7.0); Platelet Count* 257 K/uL (140-440); RDW Coefficient of Variation % 13.4 % (11.5-15.5); Red Blood Count 4.57 m/uL (4.00-5.20); White Blood Count* 8.88 K/uL (4.50-11.00)
[2023-06-21 17:21] LABS: Slide Review Reflex No
[2023-06-21 17:24] LABS: Appearance Urine Slightly Cloudy (Clear); Bilirubin Urine Negative (Negative); Blood Urine Trace-intact (Negative); Color Urine Dark yellow (Yellow); Glucose Urine Negative (Negative); Ketones Urine Negative (Negative); Leukocyte Esterase Urine Negative (Negative); Nitrite Urine Negative (Negative); Protein Urine Trace (Negative); Urobilinogen Urine 0.2 (0.2-1.0); pH Urine 8.5 (5.0-8.5)
[2023-06-21 17:35] LABS: Amorphous Sediment Urine Few; Bacteria Urine Few
[2023-06-21 18:30] VITALS: BP 121/73; PULSE 84; RESP 16; TEMP 36.5
== END 2023-06-21 18:30 | disposition home or self-care (01) ==
PROVIDERS: Emergency Provider Family Medicine; PCP Family Medicine
DX: R30.0 Dysuria (principal)
CPT/HCPCS: 36415; 80048; 81001; 85025; 87086; 99283; 99284

== ENCOUNTER 2023-06-24 14:47 | Outpatient (CLI) | payer OTHER, SELFPAY ==
--- OUTSIDE RECORDS SUMMARY | 2023-06-24 14:49 | XMS_ITS | Clinical Summary ---
Author Name Unknown Organization [facility] Address [address] [place] [address] Care Team Providers Care Hat Sprayer Name Role Phone Oksana Haque MD Primary Care Provider [phone] Source Comments You are receiving this document as you are listed as the primary care provider,follow-up provider, or the patient has been referred to you for consultation.This is in compliance with the Medicare and[facility] Hospitalcaid EHR Incentive Program,which states Providers who transition their patient to another setting of careor provider of care or refers their patient to another provider of care shouldprovide summary care record for each transition of care or referral. [facility] Allergies Active Allergy Reactions Criticality Noted [...] Overview: Mirena IUD inserted 05/14/2021 --Lot # [id number] Immunizations Name Administration Dates Next Due 9vHPV (Gardasil 9) 10/24/2019,11/29/2017, 018 DTaP 1997 HepA Ped/Adol (1-18 yrs) 11/02/2012 HepB Adult (Engerix-B, 20+ y rs, 3 dose series) 02/20/2019,11/16/2018 HepB, Unspecified Formulation 1997 Hib, Unspecified Formulation 1997 Influenza IIV4 (Quadrivalent) 0.5mL ([id number]) 03/15,04/10/2019 MMR 12/29/2018 Pfizer Monovalent 12+ Purple [...] Comments Blood Pressure 120/87 06/30/2021 2:05 PM DEFENSIVE LINE COACH Pulse 94 06/30/2021 2:05 PM DEFENSIVE LINE COACH Temperature 36.9 ??C (98.4 ??F) 05/22/2018 2:11 PM CS T Respiratory Rate 16 10/23/2017 1:50 PM CDT Oxygen Saturation 99% 05/22/2018 2:11 PM DEFENSIVE LINE COACH Inhaled Oxygen Concentration - - Weight 77 kg (169 lb 12.8 oz) 06/30/2021 2:00 PM DEFENSIVE LINE COACH Height 173.4 cm (5' 8.25) 04/16/2021 2:09 [...] age to complete this topic Care Teams Hat Sprayer Relationship Specialty Start Date End Date Oksana Haque MD [address] [place], [place] [id number] PCP - General Family Practice 02/07/21
--- OUTSIDE RECORDS SUMMARY | 2023-06-24 14:49 | XMS_ITS | Encounter Summary ---
Author Name Unknown Organization [facility] Address [address] [place] [address] Care Team Providers Care Painter Set Name Role Phone Oksana Haque MD Primary Care Provider [phone] Encounter Details Date Type Department Care Team [...] on filedocumented in this encounter Care Teams Painter Set Relationship Specialty Start Date End Date Oksana Haque MD [address] [place] [address] PCP - General Family Practice 02/07/21 documented as of this encounter
--- NOTE | 2023-06-24 15:00 | CRLHL7_ITS ---
For Patients: As a result of the Century Cures Act, medical imaging exams and procedure reports are released immediately into your electronic medical record. You may view this report before your referring provider. If you have questions, please contact your health care provider. INDICATION: Pelvic pain. TECHNIQUE: Transvaginal scanning was performed to optimally evaluate the endometrium and adnexa. Ovarian blood flow was evaluated with color-flow and pulsed Doppler. COMPARISON: None. FINDINGS: The uterus is normal in size and shape. The uterus measures 6.7 x 3.8 x 4.2 cm. No uterine mass is evident. The endometrial stripe is normal in thickness at 6 mm. An IUD is present in the uterine cavity and appears to be properly positioned. The ovaries are normal in appearance. The right ovary measures 4.0 x 2.6 x 2.1 cm and left 3.5 x 2.8 x 2.2 cm. Ovarian blood flow is demonstrated with color-flow and pulsed Doppler. No adnexal mass is evident. No free fluid is demonstrated. IMPRESSION: Negative pelvic ultrasound. Properly positioned IUD. Dictated by Leon Lozoya MD @ 06/25/2023 1:39:41 PM (Electronically Signed)
== END 2023-06-24 14:48 | disposition home or self-care (01) ==
LOC: US 14:47
PROVIDERS: PCP Family Medicine; Visit Provider Registered Nurse
DX: R10.2 Pelvic and perineal pain (principal)
CPT/HCPCS: 76830; 76856; 93976

== ENCOUNTER 2023-07-16 07:46 | Outpatient (CLI) | payer OTHER, SELFPAY ==
--- OUTSIDE RECORDS SUMMARY | 2023-07-16 07:49 | XMS_ITS | Encounter Summary ---
Author Name Unknown Organization [facility] Address [address] [place] [address] Care Team Providers Care Tube Winder Hand Name Role Phone Oksana Haque MD Primary Care Provider [phone] Encounter Details Date Type Department Care Team [...] on filedocumented in this encounter Care Teams Tube Winder Hand Relationship Specialty Start Date End Date Oksana Haque MD [address] [place] [address] PCP - General Family Practice 02/07/21 documented as of this encounter
--- OUTSIDE RECORDS SUMMARY | 2023-07-16 07:49 | XMS_ITS | Clinical Summary ---
Author Name Unknown Organization [facility] Address [address] [place] [address] Care Team Providers Care Training Executive Name Role Phone Oksana Haque MD Primary Care Provider [phone] Source Comments You are receiving this document as you are listed as the primary care provider,follow-up provider, or the patient has been referred to you for consultation.This is in compliance with the Medicare andSt[facility] Hospitalcaid EHR Incentive Program,which states Providers who transition their patient to another setting of careor provider of care or refers their patient to another provider of care shouldprovide summary care record for each transition of care or referral. [email or web address] Allergies Active Allergy Reactions Criticality Noted Date [...] Overview: Mirena IUD inserted 05/14/2021 --Lot # [id number] Immunizations Name Administration Dates Next Due 9vHPV (Gardasil 9) 10/24/2019,11/29/2017, 018 DTaP 1997 HepA Ped/Adol (1-18 yrs) 11/02/2012 HepB Adult (Engerix-B, 20+ y rs, 3 dose series) 02/20/2019,11/16/2018 HepB, Unspecified Formulation 1997 Hib, Unspecified Formulation 1997 Influenza IIV4 (Quadrivalent) 0.5mL ([id number]) 03/15,04/10/2019 MMR 12/29/2018 Pfizer Monovalent 12+ Purple [...] Comments Blood Pressure 120/87 06/30/2021 2:05 PM DOCUMENTATION ENGINEER Pulse 94 06/30/2021 2:05 PM DOCUMENTATION ENGINEER Temperature 36.9 ??C (98.4 ??F) 05/22/2018 2:11 PM CS T Respiratory Rate 16 10/23/2017 1:50 PM CDT Oxygen Saturation 99% 05/22/2018 2:11 PM DOCUMENTATION ENGINEER Inhaled Oxygen Concentration - - Weight 77 kg (169 lb 12.8 oz) 06/30/2021 2:00 PM DOCUMENTATION ENGINEER Height 173.4 cm (5' 8.25) 04/16/2021 2:09 [...] age to complete this topic Care Teams Training Executive Relationship Specialty Start Date End Date Oksana Haque MD [address] [place], [place] [phone] PCP - General Family Practice 02/07/21
--- NOTE | 2023-07-16 08:00 | CRLHL7_ITS ---
For Patients: As a result of the Century Cures Act, medical imaging exams and procedure reports are released immediately into your electronic medical record. You may view this report before your referring provider. If you have questions, please contact your health care provider. INDICATION: gross hematuria, bladder issues TECHNIQUE: CT abdomen and pelvis urogram without and with 100 cc Isovue 370 IV contrast. Contrast images were obtained in the nephrographic and delayed phases. COMPARISON: None. FINDINGS: KIDNEYS: The unenhanced images demonstrate no kidney or ureteral stones. The kidneys are normal in caliber and demonstrate normal uptake and excretion of IV contrast. No masses. The renal collecting systems and ureters are symmetrical, normal in caliber, and without evidence of mass or filling defect. URINARY BLADDER: The urinary bladder is normal in caliber and without evidence of mass, wall thickening, or inflammation. OTHER: GI tract is normal in caliber and appearance. The liver is normal in caliber and attenuation. Spleen, pancreas, and adrenal glands are normal. No mass or adenopathy. Lung bases are clear. Normal gallbladder. Osseous structures are normal. IMPRESSION: 1. Unremarkable CT urogram. No findings to explain hematuria. 2. No other acute or significant findings. Please note that all CT scans at this facility use dose modulation, iterative reconstruction, and/or weight-based dosing when appropriate to reduce radiation dose to as low as reasonably achievable. Dictated by David Owen MD @ 07/16/2023 12:05:43 PM (Electronically Signed)
== END 2023-07-16 07:47 | disposition home or self-care (01) ==
LOC: CT 07:47
PROVIDERS: PCP Family Medicine; Visit Provider Physician Assistant
DX: R31.0 Gross hematuria (principal)
CPT/HCPCS: 74178; Q9967